=== PATIENT | female | born 1945 | race Caucasian/White ===

== ENCOUNTER 2024-02-09 10:52 | Emergency (ER) | payer MEDICARE, BC, SELFPAY ==
[2024-02-09 10:55] VITALS: BP 171/100
--- NOTE | 2024-02-09 11:31 | ED.GENMED ---
History of Present Illness
General
Chief Complaint: Abdominal Pain
Source: patient
Time Seen by Provider: 02/09/24 11:12
Travel History
Have you had any contact with someone who has COVID-19?: No
Do you have any symptoms of coronavirus? Fever > 100 degrees, chills, cough, shortness of breath, sore throat, loss of taste or smell, muscle aches, or headache?: No
History of Present Illness
History of Present Illness:
78-year-old female with past medical history of hypertension, hyperlipidemia, previous gastric ulcer presenting to the emergency department for evaluation after she developed gradual onset of generalized abdominal discomfort last night described to
be a dull ache, nonradiating, diffuse, unrelieved with Prilosec this morning prompting her to come to the emergency department. Patient denies any other associated symptoms including nausea, vomiting, bowel changes, urinary symptoms, chest pain,
shortness of breath. Patient states that she went out to dinner last night with some friends and braised beef with mashed potatoes which she states is not a typical dinner for her and believes this may have aggravated her stomach. Patient states
her other concern is if she possibly aggravated her previous stomach ulcer although she notes that she has not had any complications from this before.
Past History
Past History
ED Past Medical History: HTN, Hypercholesterolemia and Other (Gastric ulcer)
ED Past Surgical History: Cholecystectomy and Other (Hernia repair)
Social History
Tobacco: Non-smoker
Alcohol: None
Drug: None
Personal: Single
Living: with family
Review of Systems
Review of Systems
All Other Systems: ROS reviewed and negative except as documented in HPI and ROS
Phy Exam
Physical Exam
Physical Exam:
GENERAL: Alert , in no apparent distress
EYE: clear conjunctiva b/l
HEAD: NCAT
ENT: o/p clr, mmm.
CARDIAC: Regular rate and rhythm .
LUNGS: Clear breath sounds bilaterally, no acute respiratory distress, no wheezes/rales/rhonchi
ABDOMEN: Soft, diffusely tender but worse suprapubically and periumbilically, no r/g, no cvat, no tenderness at McBurney's point
NEUROLOGICAL: Alert and oriented
SKIN: Warm and dry, skin intact.
MUSCULOSKELETAL: No edema, well perfused.
PSYCH: Normal and appropriate interaction.
Scores
Heart Failure Risk
Heart Failure Risk Score: Not Applicable
Heart Score for Chest Pain Patients
STEMI patient?: Not applicable
Withdrawal Assessment of Alcohol
Withdrawal Assessment Completed?: Not applicable
Course
Orders/Labs/Results
Orders:
Orders
02/09/24 11:30
Complete Blood Count/With Diff Urgent
Comprehensive Metabolic Panel Urgent
Lipase Urgent
02/09/24 11:35
CT Abd/pelvis W Iv Cont Urgent
Comment:
Reason For Exam: generalized abd pain
02/09/24 12:14
0.9% Sodium Chloride 1000 ml [Nss] 1,000 ml IV BOLUS
02/09/24 13:27
Acetaminophen [Tylenol] 1,000 mg PO NOW STA
02/09/24 14:24
Basic Metabolic Panel Urgent
Abnormal Lab Results
02/09/24 02/09/24
11:30 14:24
Absolute Monos (auto) 0.7 H 10^3/uL
(0.1-0.6)
Monocytes % 11.3 H %
(1.7-9.3)
Sodium 125 L mmol/L 126 L mmol/L
(135-145) (135-145)
Chloride 95 L mmol/L
(98-107)
Creatinine 0.5 L mg/dL
(0.6-1.0)
02/09/24 11:30
02/09/24 14:24
Vital Signs
Initial and Last Documented VS:
Initial Vital Signs
Temp Pulse Resp BP Pulse Ox
98.2 F 77 17 171/100 99
02/09/24 10:55 02/09/24 10:55 02/09/24 10:55 02/09/24 10:55 02/09/24 10:55
Last Documented Vital Signs
Temp Pulse Resp BP Pulse Ox
98.2 F 78 18 153/64 98
02/09/24 10:55 02/09/24 12:47 02/09/24 12:47 02/09/24 12:47 02/09/24 12:47
MDM/Problems Addressed
Differential Diagnosis Includes:
GERD, gastritis, peptic ulcer disease, hiatal hernia, less concern for pancreatitis, appendicitis
MDM/Problems Addressed:
78-year-old female present emergency department for evaluation of generalized abdominal pain that started last night shortly after dinnertime. Pain while improved today is still present during her to come to the emergency department. She does have
reproducible pain periumbilically and suprapubically on exam here. Otherwise well-appearing. She is declining anything for pain at this time. Will obtain labs and CT imaging. Reassessment following
*Radiology
Radiology exam reviewed: radiology read reviewed
*Pulse Oximetry
Patient hypoxic: no
*Critical Care Note
Total Time (30-74mins, 75-104mins- exclusive of procedures): Not Applicable
Comment
Comment:
Patient's labs are reassuring outside of some hyponatremia with a sodium of 125. No clear etiology for this and patient does not have a previous sodium on record. Treating with 1 L of IV fluids. Will repeat a BMP following. Patient CT without
any acute surgical findings. She is now requesting some Tylenol for pain control. Anticipate discharge home pending repeat BMP.
Patient Management
Discussion with other providers: Security Checker
Escalation/DeEscalation of care consider admission/obs:
Repeat sodium is 126. Patient remains asymptomatic. She now tells me that she is on a half dose of a diuretic which could potentially be playing a role in her sodium level. Her son reviewed her labs from back in December when she had a normal sodium
level of 138. I notified our nephrology team who is okay with us discharging patient home as she is asymptomatic. I advised the patient she contact her primary care physician to have her labs repeated in a week or so. Aware of return precautions
but otherwise stable for discharge home.
ED Attending Note
-
Portions of this chart may have been created with voice recognition software.� Occasional wrong word or��sound alike� substitutions may have occurred due to the inherent limitations of voice recognition software.
Discharge Plan
Departure
Patient Disposition: Home (Routine Discharge)
Date of Disposition: 02/09/24
Time of Disposition: 15:04
Patient with high blood pressure during this ER visit?: No
Discharge Problem:
Abdominal pain, Hyponatremia
Instructions: Abdominal Pain
Referrals:
Arpit Bianchi, [Family Provider] -
Interventions
Interventions:
*Risk Screen - Suicide Last Done: 02/09/24 11:51
*General Assessment Last Done: 02/09/24 11:29
*Neglect/Abuse Screening Last Done: 02/09/24 11:51
ED- Fall Risk Assessment Last Done: 02/09/24 11:50
*ED COVID-19 Vaccine History Last Done: 02/09/24 11:29
QQ-Nvzbzf-Mpuihgxroi Assessment Last Done: 02/09/24 11:50
Discharge Date and Time
Print Language: JAMAICAN
[2024-02-09 11:44] LABS: % Basophils 0.8 % (0-2); % Eosinophils 1.1 % (0-6); % Immature Granulocytes 0.3 % (0-0.5); % Monocytes 11.3 % (1.7-9.3); % Neutrophils 64.5 % (42.2-75.2); Absolute Basophils 0.1 10^3/uL (0-0.2); Absolute Eosinophils 0.1 10^3/uL (0-0.7); Absolute Lymphocytes 1.3 10^3/uL (1.2-3.4); Absolute Monocytes 0.7 10^3/uL (0.1-0.6); Absolute Neutrophils 3.9 10^3/uL (1.4-6.5); Hematocrit 39.5 % (37.0-47.0); Hemoglobin 13.7 g/dL (12.0-16.0); Mean Corp Hgb Conc. 34.7 g/dL (33.0-37.0); Mean Corpuscular Hgb 28.5 pg (27.0-31.0); Mean Corpuscular Volume 82.3 fL (81.0-99.0); Mean Platelet Volume 8.3 fL (7.4-10.4); Nucleated Red Blood Cells % 0 %; Platelet Count 289 10^3/uL (130-400); Red Cell Dist. Width 13.2 % (11.5-14.5); White Blood Cell Count 6.1 10^3/uL (4.8-10.8)
[2024-02-09 12:06] LABS: ALT (SGPT) 19 U/L (0-35); AST (SGOT) 28 U/L (14-36); Albumin 4.7 g/dl (3.5-5.0); Alkaline Phosphatase 68 U/L (38-126); Blood Urea Nitrogen 16 mg/dl (7-17); Calcium 9.9 mg/dl (8.4-10.2); Carbon Dioxide 25 mmol/L (22-30); Chloride 95 mmol/L (98-107); Glucose 94 mg/dl (70-99); Lipase 113 U/L (23-300); Potassium 4.6 mmol/L (3.5-5.1); Sodium 125 mmol/L (135-145); Total Bilirubin 0.6 mg/dl (0.2-1.3); Total Protein 7.3 g/dl (6.3-8.2); eGFR > 60.00
[2024-02-09] MEDS: NSS 1000 IV (12:23)
[2024-02-09 12:47] VITALS: BP 153/64
[2024-02-09] MEDS: TYLENOL 1000 MG PO (13:29)
[2024-02-09 14:47] LABS: Blood Urea Nitrogen 13 mg/dl (7-17); Calcium 8.8 mg/dl (8.4-10.2); Carbon Dioxide 24 mmol/L (22-30); Chloride 99 mmol/L (98-107); Glucose 89 mg/dl (70-99); Sodium 126 mmol/L (135-145); eGFR > 60.00
[2024-02-09 15:17] VITALS: BP 137/89
== END 2024-02-09 15:22 | disposition home or self-care (01) ==
LOC: EMR 10:52
PROVIDERS: Physician Assistant Medical; EMERGENCY PHYSICIAN Emergency Medicine; FAMILY PHYSICIAN Family Medicine
DX: R10.84 Generalized abdominal pain (principal); E87.1 Hypo-osmolality and hyponatremia; I10 Essential (primary) hypertension; E78.00 Pure hypercholesterolemia, unspecified; Z87.11 Personal history of peptic ulcer disease; Z90.49 Acquired absence of other specified parts of digestive tract
CPT/HCPCS: 99285; 74177; 80048; 80053; 83690; 85025; Q9967

== ENCOUNTER → 2024-04-21 13:41 | Outpatient (REF) | payer MEDICARE, BC, SELFPAY | LOC: HWRAD 13:41 | PROVIDERS: ATTENDING PHYSICIAN Internal Medicine Interventional Cardiology; FAMILY PHYSICIAN Family Medicine | DX: E78.49 Other hyperlipidemia (principal) | CPT/HCPCS: 75571 ==

== ENCOUNTER → 2024-05-08 10:42 | Outpatient (REF) | payer MEDICARE, BC, SELFPAY | LOC: HWRCS 10:42 | PROVIDERS: ATTENDING PHYSICIAN Internal Medicine Interventional Cardiology; FAMILY PHYSICIAN Family Medicine | DX: I10 Essential (primary) hypertension (principal) | CPT/HCPCS: 93306 ==

== ENCOUNTER 2024-10-16 09:29 | Inpatient (IN) | payer MEDICARE, BC, SELFPAY ==
[2024-10-13 16:58] VITALS: BP 147/84
[2024-10-13 17:12] LABS: % Basophils 0.3 % (0-2); % Eosinophils 0.6 % (0-6); % Immature Granulocytes 0.5 % (0-0.5); % Lymphocytes 8.3 % (20.5-51.1); % Monocytes 8.1 % (1.7-9.3); % Neutrophils 82.2 % (42.2-75.2); Absolute Eosinophils 0.1 10^3/uL (0-0.7); Absolute Immature Granulocytes 0.1 10^3/uL (0-0.05); Absolute Neutrophils 9.9 10^3/uL (1.4-6.5); Hematocrit 42.9 % (37.0-47.0); Hemoglobin 14.4 g/dL (12.0-16.0); Mean Corp Hgb Conc. 33.6 g/dL (33.0-37.0); Mean Corpuscular Volume 86.5 fL (81.0-99.0); Mean Platelet Volume 8.5 fL (7.4-10.4); Nucleated Red Blood Cells % 0 %; Platelet Count 232 10^3/uL (130-400); Red Blood Cell Count 4.96 10^6/uL (4.20-5.40)
[2024-10-13 17:26] LABS: ALT (SGPT) 22 U/L (0-35); AST (SGOT) 36 U/L (14-36); Albumin 5.2 g/dl (3.5-5.0); Alkaline Phosphatase 55 U/L (38-126); Blood Urea Nitrogen 18 mg/dl (7-17); Carbon Dioxide 26 mmol/L (22-30); Chloride 89 mmol/L (98-107); Glucose 155 mg/dl (70-99); Lipase 57 U/L (23-300); Potassium 3.6 mmol/L (3.5-5.1); Sodium 127 mmol/L (135-145); Total Bilirubin 0.8 mg/dl (0.2-1.3); Total Protein 7.8 g/dl (6.3-8.2); eGFR > 60.00
[2024-10-13 17:39] LABS: Troponin I < 0.012 ng/ml
[2024-10-13 18:08] LABS: COVID-19 Antigen Negative (Negative)
[2024-10-13 20:46] VITALS: BP 167/97; BMI 27.3
--- NOTE | 2024-10-13 20:46 | ED.GENMED ---
History of Present Illness
General
Chief Complaint: Fainting/Passed Out
Source: patient and family
Time Seen by Provider: 10/13/24 20:31
History of Present Illness
History of Present Illness:
3 to 4 days of cough congestion fatigue weakness. Near syncopal episode day of ER visit. Some sweating. No chest pain. Symptoms are moderate in nature.
Past History
Past History
ED Past Medical History: HTN, Hypercholesterolemia and Other (Gastric ulcer)
ED Past Surgical History: Cholecystectomy and Other (Hernia repair)
Social History
Tobacco: Non-smoker
Alcohol: None
Drug: None
Personal: Single
Living: with family
Review of Systems
Review of Systems
All Other Systems: Not applicable
Constitutional: Reports fever and fatigue
Respiratory: Reports cough and trouble breathing
Cardiac: Denies chest pain
ABD/GI: Reports no symptoms
Phy Exam
Physical Exam
Physical Exam:
GENERAL: Alert and oriented. Generally weak appearing
EYE: Orbits normal.
NECK: Supple, no significant adenopathy.
ENT: Pharynx without erythema
CARDIAC: Regular rate and rhythm without any obvious murmurs.
LUNGS: Occasional rhonchi's with coarse cough
ABDOMEN: Soft, without focal tenderness or distention
NEUROLOGICAL: Alert and oriented , grossly non-focal
SKIN: Warm and dry, no rash or lesion, no discoloration, skin intact.
MUSCULOSKELETAL: No edema,no deformity.Good color
PSYCH: Normal and appropriate interaction.
Course
Orders/Labs/Results
Orders:
Orders
10/13/24 16:45
Electrocardiogram (*1) Urgent
Reason for Study: Abdominal Pain
EKG- Treatment ONCE
10/13/24 16:50
COVID-19 Antigen Urgent
Source: Nasal Swab
Complete Blood Count/With Diff Urgent
Comprehensive Metabolic Panel Urgent
Lipase Urgent
Troponin I Urgent
Influenza A+B Rapid Molecular Urgent
BERNIE Source: Nasal Swab
Specimen Description:
10/13/24 20:44
IV Insert/Care/Rem.- Treatment PRN
0.9% Sodium Chloride 1000 ml [Nss] 1,000 ml IV BOLUS
10/13/24 20:45
CR Chest - 2 Views Urgent
Comment:
Reason For Exam: Cough/near syncope
10/13/24 22:56
Admit/Transfer Patient As Directed
Co-Sign Provider:
Level of Care: Observation services
Assign to:: Telemetry
Physician / Group: José Miguel
Diagnosis: Viral Syndrome, Chronic Hyponatremia
Reason for Telemetry: Arrhythmia
Date to Stop Telemetry: 10/16/24
Time to Stop Telemetry: 11:00
PRN Pain Medication Management As Directed
May give lesser potent ordered pain med per pt: Yes
preference::
Protocol:: Medication orders for pain may be administered in a
manner that supports deferring to patient preference
when the pt is:
- Requesting an ordered lesser potent pain medication.
Least to most potent pain medications are defined
as: acetaminophen < NSAID < tramadol < opioids
(morphine, oxycodone, hydromorphone).
- Requesting a lesser dose of the same medication IF
ORDERED.
- Requesting a less intrusive route of administration
if both routes are prescribed by the provider (PO <
IV).
10/13/24 22:57
Code Status As Directed
Resuscitation Status: Full Code
10/14/24 01:07
Acetaminophen [Tylenol] 650 mg PO Q4HPRN PRN
Albuterol Nebs [Ventolin Nebules] 2.5 mg INH R Q4HPRN PRN
Ondansetron Injectable [Zofran] 4 mg IV Q6HPRN PRN
10/14/24 01:07
Activity As Directed
Activity Level: Ambulate
With Assistance
EKG with chest pain [ECG as needed] As Directed
ECG as needed for:: Chest Pain
I/O [Intake/ Output] As Directed
Frequency: Per unit guidelines
Orthostatic Vital Signs As Directed
Orthostatic VS Frequency: BID
Pneumatic Compression Sleeves As Directed
Type: Knee high
Vital Signs As Directed
Frequency: Per unit guidelines
Weight As Directed
Frequency: Daily
Chest PT [Rx Chest Pt] [RESP] Routine
Special Instructions: BID
Incentive Spirometry [Rx Incentive Spirometry] [RESP] Routine
Frequency: q1h while awake
Oxygen Therapy [O2 Therapy] [RESP] Routine
Titrate/Wean O2 to maintain O2 sat greater than (%): 94
Ot Eval And Treat Routine
PT Consult [Pt Eval And Treat] Routine
Activity Level: Ambulate
With Assistance
DX Deep Vein Thrombosis Video Routine
10/14/24 05:19
Basic Metabolic Panel IN AM
Complete Blood Count/No Diff IN AM
Cortisol, Random IN AM
Glycohemoglobin (HgbA1c) Routine
TSH Reflex To Free T4 Routine
10/14/24 Breakfast
Regular
At Your Request: Full Participation
Does patient need a safe tray?: No
Fluid Restriction: 1200 mL/day (40 oz)
10/14/24 08:00
Guaifenesin [Mucinex] 600 mg PO Q12
Heparin 5,000 units SC Q12
Losartan [Cozaar] 25 mg PO DAILY
Pantoprazole [Protonix] 40 mg PO DAILY
10/14/24 12:02
Urine Osmolality Random [Osmolality, Random Urine] Routine
Date Specimen was Collected: 10/14/24
Time Specimen was Collected: 11:55
Urine Sodium Routine
Date Specimen was Collected: 10/14/24
Time Specimen was Collected: 11:55
10/14/24 22:00
Atorvastatin [Lipitor] 20 mg PO HS
verapamil 300 mg PO HS
10/16/24 11:00
DC Protocol for Telemetry ONCE
Abnormal Lab Results
10/13/24
16:50
WBC 12.0 H 10^3/uL
(4.8-10.8)
Abs Immat Gran (auto) 0.1 H 10^3/uL
(0-0.05)
Absolute Neuts (auto) 9.9 H 10^3/uL
(1.4-6.5)
Absolute Lymphs (auto) 1.0 L 10^3/uL
(1.2-3.4)
Absolute Monos (auto) 1.0 H 10^3/uL
(0.1-0.6)
Neutrophils % 82.2 H %
(42.2-75.2)
Lymphocytes % 8.3 L %
(20.5-51.1)
Sodium 127 L mmol/L
(135-145)
Chloride 89 L mmol/L
(98-107)
BUN 18 H mg/dl
(7-17)
Glucose 155 H mg/dl
(70-99)
Albumin 5.2 H g/dl
(3.5-5.0)
10/13/24 16:50
10/13/24 16:50
Vital Signs
Initial and Last Documented VS:
Initial Vital Signs
Temp Pulse Resp Pulse Ox
97.8 F 68 18 98
10/13/24 16:43 10/13/24 16:43 10/13/24 16:43 10/13/24 16:43
Last Documented Vital Signs
Temp Pulse Resp BP Pulse Ox
98.4 F 95 20 168/96 97
10/16/24 15:21 10/16/24 15:21 10/16/24 15:21 10/16/24 15:21 10/16/24 15:21
MDM/Problems Addressed
Differential Diagnosis Includes:
Patient with general fatigue weakness hyponatremia near syncope. Warrants inpatient evaluation and further care
*Radiology
Radiology exam reviewed: radiology read reviewed (No acute findings)
*Pulse Oximetry
Patient hypoxic: no
*EKG
Interpreted by ED Provider?: Yes
Interpretation: normal
Comparison EKG: no comparison EKG present
Heart Rate: 67
Rhythm: sinus
Salol: normal axis
Interval: normal interval
QRS Pattern: normal QRS
Ischemia: no ischemia
*Critical Care Note
Total Time (30-74mins, 75-104mins- exclusive of procedures): Not Applicable
Data Reviewed
Review of Other/Old Records Reveals: Labs and Testing
Update Note
Update Note:
Persistent nausea. Hyponatremia may be acute/recurrent or chronic. We have no comparison. Likely viral syndrome with near syncope secondary to nausea and abdominal symptoms. However patient remains nauseous. Baseline hyponatremia is unknown.
Warrants inpatient management
ED Attending Note
-
Portions of this chart may have been created with voice recognition software.� Occasional wrong word or��sound alike� substitutions may have occurred due to the inherent limitations of voice recognition software.
Discharge Plan
Departure
Patient Disposition: Admit
Date of Disposition: 10/13/24
Time of Disposition: 22:32
Presentation/result/management discussed w/ accepting MD/DO: Hospitalist
Discharge Problem:
Near syncope, Hyponatremia, Persistent nausea, Likely viral syndrome
Interventions
Interventions:
*Risk Screen - Suicide Last Done: 10/14/24 01:30
*General Assessment Last Done: 10/13/24 20:47
*Neglect/Abuse Screening Last Done: 10/13/24 20:47
ED- Fall Risk Assessment Last Done: 10/13/24 20:47
*ED COVID-19 Vaccine History Last Done: 10/14/24 01:30
*Nursing Disposition Last Done: 10/14/24 00:47
ED- Cardiac Assessment Last Done: 10/13/24 20:47
ED- Neurological Assessment Last Done: 10/13/24 20:47
Discharge Date and Time
Discharge Date/Time: 10/14/24 00:48
[2024-10-13] MEDS: NSS 1000 IV (21:12)
--- NOTE | 2024-10-13 22:59 | HPS.HSE ---
Family Physician
-
Family Physician: Arpit Bianchi
Chief Complaint
-
Nausea, cough, dizziness
History of Present Illness
Patient is an 79y F with PMH significant for hypertension who presents to ED complaining of cough x several days, nausea and lightheadedness. Patient states that she started with hacking, non-productive cough on . She then developed
epigastric abdominal discomfort and nausea. Her cough has been non-productive. She complains of dyspnea only with paroxysms of coughing. No chest pain. Today she felt extremely nauseated. She denies emesis, but states that she 'spit up bile' a
few times - including here in the ED.
Patient today noted sensation of lightheadedness. She did not fall, lose consciousness, etc.
Patient notes that she was at a family reunion 10/01 with many, many family members.
Medical History
Past Medical History
Past Medical History: Reports Other
Additional Past Medical History:
Hypertension
Osteoarthritis
GERD
Past Surgical History: Reports Other
Additional Past Surgical History:
Hernia Repair
Foot Surgery
Social History
Tobacco: Former Smoker (Quit smoking 60 years ago.)
Alcohol: Occasional
Drug: None
Family History
Family History: Not pertinent
Allergies / Home Medications
Allergies reflects when Allergies were last updated in [facility].
Home Medications with original date entered in [facility]
Allergy/Medication List:
Allergies
Allergy/AdvReac Type Severity Reaction Status Date / Time
No Known Allergies Allergy Unverified 02/09/24 10:56
Home Medications
acetaminophen 650 mg tablet,extended release (Tylenol Arthritis Pain) 1,300 mg PO DAILY 10/13/24
benzonatate 200 mg capsule 200 mg PO TID 10/13/24
cholecalciferol (vitamin D3) 50 mcg (2,000 unit) tablet (Vitamin D3) 50 mcg PO QPM 10/13/24
cyclobenzaprine 10 mg tablet 10 mg PO HS PRN Muscle pain 10/13/24
hydrochlorothiazide 25 mg tablet 25 mg PO DAILY 10/13/24
promethazine-DM 6.25 mg-15 mg/5 mL oral syrup 10 ml PO TID 10/13/24
psyllium husk 3.4 gram/5.4 gram oral powder (Metamucil) 2 tbsp PO DAILY 10/13/24
rosuvastatin 5 mg tablet 5 mg PO HS 10/13/24
solifenacin 5 mg tablet (Vesicare) 5 mg PO DAILY 10/13/24
verapamil 300 mg capsule 24hr pellet CT,ext.release 300 mg PO HS 10/13/24
Review of Systems
-
History Source: Patient
A 12 point ROS was completed and negative except as noted: Yes
Constitutional: Reports Fatigue; Denies Fever or Chills
EENT: Denies Sore Throat
Respiratory: Reports Cough and Trouble Breathing; Denies Hemoptysis
Cardiac: Denies Chest Pain, Diaphoresis, Palpitations or Syncope
Abdomen/GI: Reports Nausea and Vomiting; Denies Abdominal Pain or Diarrhea
: Denies Dysuria or Frequency
Musculoskeletal: Denies Joint Pain or Edema
Neurological: Reports Dizzy; Denies Headache
Psych: Denies Depression or Anxiety
Physical Exam
Vital Signs
Vital Signs
Temp Pulse Resp BP Pulse Ox
97.8 F 68 18 167/97 94
10/13/24 16:43 10/13/24 16:43 10/13/24 16:43 10/13/24 20:46 10/13/24 21:45
Physical Exam
General: Other (79y F in no acute distress.)
HEENT: Moist mucous membranes and PERRLA
Respiratory: Other (Coarse breath sounds in the upper lobes - R > L. No wheezing. Cough with deep inspiration.)
Cardiac: S1/S2 and Regular Rhythm; No Murmur
GI: Soft, Non Distended, Normal Bowel Sounds and Other (Mild epigastric tenderness. No rebound / guarding.)
Musculoskeletal: No Clubbing, No Cyanosis and No Edema
Neuro: AO x 3
Laboratory Results
-
10/13/24 16:50
10/13/24 16:50
Laboratory Results
Total Bilirubin 0.8 mg/dl (0.2-1.3) 10/13/24 16:50
AST 36 U/L (14-36) 10/13/24 16:50
ALT 22 U/L (0-35) 10/13/24 16:50
Alkaline Phosphatase 55 U/L (38-126) 10/13/24 16:50
Troponin I < 0.012 ng/ml 10/13/24 16:50
Lipase 57 U/L (23-300) 10/13/24 16:50
Impression/Plan
-
A/P: Patient is an 79y F with PMH significant for hypertension who presents to ED complaining of cough x several days with nausea and lightheadedness.
Viral Syndrome
- Observe overnight for further evaluation and treatment.
- COVID and influenza negative here in the ED.
- No focal infiltrates appreciated on CXR.
- Supportive care with nebs, mucolytics, etc.
- Follow for clinical improvement.
Hyponatremia - Chronic
- This is clearly secondary to HCTZ therapy.
- HCTZ was started in January. Prior records note normal Na level in December and hyponatremia at both ED visits since that time.
- Stop HCTZ and would not resume this medication.
- Fluid restriction for now and follow for improvement in Na levels.
Benign Hypertension
- Stable. Continue verapamil.
- Stop HCTZ as noted above.
- Begin losartan for added BP control for now and adjust regimen as needed.
OAB
- Stable. Continue Vesicare.
DVT Prophylaxis: Subcut Heparin
Code Status: Full
[2024-10-14] VITALS (10 sets, daily range): BP systolic 115–162; BP diastolic 64–101; PULSE 93–116; O2SAT 97; BMI 26.8; BMI 27.0
--- NOTE | 2024-10-14 03:01 | PTCARENOTE ---
Rec'd pt from the ED, oriented to room and unit. Placed on tele, running nsr. call levy placed within reach, pt instructed to ring for assistance. will cont to monitor.
[2024-10-14] MEDS: ZOFRAN 4 MG IV ×3 (04:22→18:32)
[2024-10-14 06:03] LABS: Hematocrit 41.1 % (37.0-47.0); Hemoglobin 14.2 g/dL (12.0-16.0); Mean Corp Hgb Conc. 34.5 g/dL (33.0-37.0); Mean Corpuscular Hgb 29.5 pg (27.0-31.0); Mean Corpuscular Volume 85.3 fL (81.0-99.0); Mean Platelet Volume 8.8 fL (7.4-10.4); Platelet Count 247 10^3/uL (130-400); Red Blood Cell Count 4.82 10^6/uL (4.20-5.40); Red Cell Dist. Width 12.9 % (11.5-14.5); White Blood Cell Count 8.9 10^3/uL (4.8-10.8)
[2024-10-14 06:26] LABS: Blood Urea Nitrogen 18 mg/dl (7-17); Calcium 9.1 mg/dl (8.4-10.2); Carbon Dioxide 25 mmol/L (22-30); Chloride 92 mmol/L (98-107); Estimated Creatinine Clearance 50 ml/min; Glucose 117 mg/dl (70-99); Potassium 4.1 mmol/L (3.5-5.1); Sodium 130 mmol/L (135-145); eGFR > 60.00
[2024-10-14 06:56] LABS: TSH Reflex To Free T4 0.54 uIU/ml (0.47-4.68)
[2024-10-14 06:57] LABS: Cortisol, Random 34.1 ug/dl
--- NOTE | 2024-10-14 07:20 | W.PN.HOSP.TC ---
Today's Communication/Plan
-
Continue to monitor, supportive care
Assessment / Plan
Assessment / Plan
Physical Exam
General: Not in acute distress
HEENT: Moist mucous membranes
Respiratory: CTAB
Cardiac: S1/S2 and Regular Rhythm
GI: Soft, Non Distended, Normal Bowel Sounds and Other (Mild epigastric tenderness. No rebound / guarding.)
Musculoskeletal: No Cyanosis and No Edema
Neuro: AAO x 3
Assessment/Plan
Patient is an 79y F with PMH significant for hypertension who presents to ED complaining of cough x several days with nausea and lightheadedness.
Viral Syndrome
- COVID and influenza negative in the ED.
- No focal infiltrates appreciated on CXR.
- Supportive care with nebs, mucolytics, etc.
- Follow for clinical improvement.
Nausea/Vomiting
- Continue to monitor
- Check repeat EKG
Hyponatremia - Chronic
- This is clearly secondary to HCTZ therapy.
- HCTZ was started in January. Prior records note normal Na level in December and hyponatremia at both ED visits since that time.
- Stop HCTZ and would not resume this medication.
- Fluid restriction for now and follow for improvement in Na levels.
Benign Hypertension
- Stable. Continue verapamil.
- Stop HCTZ as noted above.
- Begin losartan for added BP control for now and adjust regimen as needed.
OAB
- Stable. Continue Vesicare.
DVT Prophylaxis: Subcut Heparin
Code Status: Full
Anticipated Discharge: 24 - 48 hours
Subjective/Interval History
-
Date of Service: October 14, 2024
Patient was seen and examined. She reported not feeling great, still coughing, vomited this morning.
Objective Data
-
Labs:
Laboratory Results
10/14/24
05:19
WBC 8.9
Hgb 14.2
Hct 41.1
Plt Count 247
Sodium 130 L
Potassium 4.1
Chloride 92 L
Carbon Dioxide 25
BUN 18 H
Creatinine 0.7
Glucose 117 H
Calcium 9.1
Vital Signs:
Vital Signs
Temp Pulse Resp BP Pulse Ox
99.2 F 95 16 158/89 94
10/14/24 03:00 10/14/24 03:00 10/14/24 03:00 10/14/24 03:00 10/14/24 03:00
I&O
10/13/24 10/14/24 10/15/24
06:59 06:59 06:59
Intake Total 1000 / 1000
Balance 1000 / 1000
[2024-10-14 08:54] LABS: Glycohemoglobin (HgbA1c) 5.4 % (4.0-5.6)
--- NOTE | 2024-10-14 09:37 | CM ---
CM met with pt at bedside.
Pt reports being ind. prior to admission with amb and adl's.
Resides alone at [facility].
CHIN form reviewed and placed on chart.
Pt began to report N/V. Nursing notified.
[2024-10-14] MEDS: MUCINEX 600 MG PO ×2 (10:15→20:06)
[2024-10-14] MEDS: HEPARIN 5000 UNITS SC ×2 (10:16→20:06)
[2024-10-14] MEDS: COZAAR 25 MG PO (10:16)
[2024-10-14] MEDS: PROTONIX 40 MG PO (10:16)
[2024-10-14 12:20] LABS: Urine Albumin Trace (Neg - Trace); Urine Bilirubin Negative (Negative); Urine Character Clear (Clear); Urine Color Yellow; Urine Glucose Negative (Negative); Urine Ketone 1+ (Negative); Urine Leukocyte Trace (Negative); Urine Nitrite Positive (Negative); Urine Occult Blood 1+ (Negative); Urine Specific Gravity 1.025 (<1.030); Urine Urobilinogen Negative (Neg - 1+)
[2024-10-14 12:32] LABS: Osmolality Urine 645 mOsm/kg (300-900); Urine Bacteria Many (Negative); Urine Red Blood Cell 0-2 /HPF (0-2); Urine Squamous Cell 0-2 /LPF (Few); Urine White Cell 30-40 /HPF (0-5)
[2024-10-14 12:37] LABS: Urine Sodium 79 mmol/L (30-90)
[2024-10-14] MEDS: LIPITOR PO (21:05)
[2024-10-15] VITALS (9 sets, daily range): BP systolic 110–158; BP diastolic 65–92; PULSE 89–107; BMI 26.5
--- NOTE | 2024-10-15 06:22 | PTCARENOTE ---
pt is nauseous and vomited. had Zofran earlier. later resolved and no other issues throughout the night.
[2024-10-15] MEDS: COZAAR 25 MG PO (08:46)
[2024-10-15] MEDS: MUCINEX 600 MG PO (08:46)
[2024-10-15] MEDS: HEPARIN 5000 UNITS SC ×2 (08:47→19:56)
[2024-10-15] MEDS: PROTONIX 40 MG PO ×2 (08:47→20:23)
[2024-10-15 09:42] LABS: Hematocrit 40.3 % (37.0-47.0); Hemoglobin 13.8 g/dL (12.0-16.0); Mean Corp Hgb Conc. 34.2 g/dL (33.0-37.0); Mean Corpuscular Hgb 29.2 pg (27.0-31.0); Mean Corpuscular Volume 85.4 fL (81.0-99.0); Mean Platelet Volume 9.1 fL (7.4-10.4); Platelet Count 229 10^3/uL (130-400); Red Blood Cell Count 4.72 10^6/uL (4.20-5.40); Red Cell Dist. Width 13.1 % (11.5-14.5); White Blood Cell Count 9.3 10^3/uL (4.8-10.8)
[2024-10-15 10:17] LABS: Blood Urea Nitrogen 27 mg/dl (7-17); Carbon Dioxide 23 mmol/L (22-30); Chloride 93 mmol/L (98-107); Estimated Creatinine Clearance 43 ml/min; Glucose 97 mg/dl (70-99); Potassium 3.7 mmol/L (3.5-5.1); Sodium 130 mmol/L (135-145); eGFR > 60.00
--- NOTE | 2024-10-15 13:19 | CM ---
CM reviewed chart, patient seen bedside. Patient reports no needs to CM at this time. Patient resides at [facility]. CM will continue to follow for all discharge planning needs.
Plan; return to Independent Living when stable.
[2024-10-15] MEDS: ZOFRAN 4 MG IV (18:30)
--- NOTE | 2024-10-15 19:00 | W.PN.HOSP.TC ---
Today's Communication/Plan
-
Continue with nausea/abdominal pain, EKG noted not suggestive of ACS.
RUQ Ultrasound, CT Abdomen Pelvis
Increase PPI to twice daily
Assessment / Plan
Assessment / Plan
Physical Exam
General: Not in acute distress
HEENT: Moist mucous membranes
Respiratory: CTAB
Cardiac: S1/S2 and Regular Rhythm
GI: Soft, Non Distended, Normal Bowel Sounds and Other (Mild epigastric tenderness. No rebound / guarding.)
Musculoskeletal: No Cyanosis and No Edema
Neuro: AAO x 3
Assessment/Plan
Patient is an 79y F with PMH significant for hypertension who presents to ED complaining of cough x several days with nausea and lightheadedness.
Concern Viral Syndrome
- COVID and influenza negative in the ED.
- No focal infiltrates appreciated on CXR.
- Supportive care with nebs, mucolytics, etc.
- Follow for clinical improvement.
Nausea/Vomiting/Abdominal Pain
- Continue to persist; check RUQ ultrasound and CT Abdomen/Pelvis
- Increase PPI BID
- Check repeat EKG
Hyponatremia - Chronic
- This is at least partly secondary to HCTZ therapy.
- HCTZ was started in January 2024. Prior records note normal sodium level in December 2023 and hyponatremia at both ED visits since that time.
- Stop HCTZ and would not resume this medication.
- Fluid restriction for now and follow for improvement in Na levels.
Benign Hypertension
- Stable.
- Stop HCTZ as noted above.
- Begin losartan for added BP control for now and adjust regimen as needed.
- Patient's blood pressure is controlled while Verapamil is on hold
OAB
- Stable. Continue Vesicare.
DVT Prophylaxis: Subcutaneous Heparin 5000 units Q12H was given from 10/14/24 to 10/15/24. Start Lovenox on 10/16/24.
Code Status: Full Code
Anticipated Discharge: 24 - 48 hours
Subjective/Interval History
-
Date of Service: October 15, 2024
Patient was seen and examined. She still reports some epigastric abdominal discomfort, still having nausea vomiting at times. She denied any chest pain or shortness of breath.
Objective Data
-
Labs:
Laboratory Results
10/15/24
07:12
WBC 9.3
Hgb 13.8
Hct 40.3
Plt Count 229
Sodium 130 L
Potassium 3.7
Chloride 93 L
Carbon Dioxide 23
BUN 27 H
Creatinine 0.8
Glucose 97
Calcium 9.0
Vital Signs:
Vital Signs
Temp Pulse Resp BP Pulse Ox
98.6 F 70 20 130/80 98
10/15/24 15:18 10/15/24 15:18 10/15/24 15:18 10/15/24 15:18 10/15/24 15:18
I&O
10/14/24 10/15/24 10/16/24
06:59 06:59 06:59
Intake Total 1000 / 1000 400 / 400 1200 / 1200
Output Total 350 / 350
Balance 1000 / 1000 50 / 50 1200 / 1200
[2024-10-15] MEDS: LIPITOR 20 MG PO (19:56)
[2024-10-15] MEDS: MUCINEX PO ×2 (19:56→20:02)
[2024-10-15 21:04] LABS: Troponin I < 0.012 ng/ml
[2024-10-16] VITALS (7 sets, daily range): BP systolic 135–168; BP diastolic 72–98; PULSE 91–96; BMI 26.3
[2024-10-16 03:06] LABS: Troponin I < 0.012 ng/ml
[2024-10-16 08:47] LABS: % Basophils 0.4 % (0-2); % Eosinophils 0.2 % (0-6); % Immature Granulocytes 0.2 % (0-0.5); % Lymphocytes 11.8 % (20.5-51.1); % Monocytes 15.9 % (1.7-9.3); % Neutrophils 71.5 % (42.2-75.2); Absolute Monocytes 1.4 10^3/uL (0.1-0.6); Absolute Neutrophils 6.1 10^3/uL (1.4-6.5); Hematocrit 40.2 % (37.0-47.0); Hemoglobin 13.7 g/dL (12.0-16.0); Mean Corp Hgb Conc. 34.1 g/dL (33.0-37.0); Mean Corpuscular Hgb 29.3 pg (27.0-31.0); Mean Corpuscular Volume 85.9 fL (81.0-99.0); Mean Platelet Volume 8.6 fL (7.4-10.4); Nucleated Red Blood Cells % 0 %; Platelet Count 210 10^3/uL (130-400); Red Blood Cell Count 4.68 10^6/uL (4.20-5.40); Red Cell Dist. Width 12.9 % (11.5-14.5); White Blood Cell Count 8.5 10^3/uL (4.8-10.8)
[2024-10-16 09:13] LABS: Troponin I < 0.012 ng/ml
[2024-10-16] MEDS: COZAAR 25 MG PO (09:39)
[2024-10-16] MEDS: PROTONIX 40 MG PO ×2 (09:39→20:13)
[2024-10-16] MEDS: MUCINEX 600 MG PO (09:39)
[2024-10-16] MEDS: OMNIPAQUE 50 ML PO (09:40)
[2024-10-16 09:58] LABS: ALT (SGPT) 19 U/L (0-35); AST (SGOT) 36 U/L (14-36); Alkaline Phosphatase 59 U/L (38-126); Blood Urea Nitrogen 26 mg/dl (7-17); Calcium 9.2 mg/dl (8.4-10.2); Carbon Dioxide 27 mmol/L (22-30); Chloride 94 mmol/L (98-107); Estimated Creatinine Clearance 43 ml/min; Glucose 85 mg/dl (70-99); Magnesium 2.2 mg/dl (1.6-2.3); Potassium 3.7 mmol/L (3.5-5.1); Sodium 132 mmol/L (135-145); Total Bilirubin 0.5 mg/dl (0.2-1.3); Total Protein 6.3 g/dl (6.3-8.2); eGFR > 60.00
--- NOTE | 2024-10-16 12:53 | CM ---
CM received TT, patient switched to inpatient status. Patient seen bedside with friends, reports no needs to CM at this time. IMM verbally reviewed, agreeable to form, provided with copy, placed in chart. CM will continue to follow for all discharge
planning needs.
Plan; home with no needs.
--- NOTE | 2024-10-16 12:55 | W.PN.HOSP.TC ---
Today's Communication/Plan
-
Small Bowel Obstruction and hernia
Surgery on Saturday
Strict NPO, IV fluids --> diet may be able to be advanced to clear liquids over the weekend
Assessment / Plan
Assessment / Plan
Physical Exam
General: Not in acute distress
HEENT: Moist mucous membranes
Respiratory: CTAB
Cardiac: S1/S2 and Regular Rhythm
GI: Soft, Non Distended, Normal Bowel Sounds and Other (Mild epigastric tenderness. No rebound / guarding.)
Musculoskeletal: No Cyanosis and No Edema
Neuro: AAO x 3
Assessment/Plan
Patient is an 79y F with PMH significant for hypertension who presents to ED complaining of cough x several days with nausea and lightheadedness.
Nausea/Vomiting/Abdominal Pain
Small Bowel Obstruction with Right anterolateral pelvic wall hernia
- Surgery consulted, patient opted for surgery which is expected to take place on 10/19/24
- Strict NPO
- Continue IV fluids
Hyponatremia - Chronic
- This is at least partly secondary to HCTZ therapy.
- HCTZ was started in January 2024. Prior records note normal sodium level in December 2023 and hyponatremia at both ED visits since that time.
- Stop HCTZ and would not resume this medication.
- Fluid restriction for now and follow for improvement in Na levels.
Benign Hypertension
- Stable.
- Stop HCTZ as noted above.
- Losartan on hold due to strict NPO
- Patient's blood pressure is controlled while Verapamil is on hold
- If BP high, can use IV medications
OAB
- Stable. Continue Vesicare.
DVT Prophylaxis: Lovenox
Code Status: Full Code
Anticipated Discharge: > 48 hours
Subjective/Interval History
-
Date of Service: October 16, 2024
Patient was seen and examined. She reports continued vomiting.
Objective Data
-
Labs:
Laboratory Results
10/16/24
08:23
WBC 8.5
Hgb 13.7
Hct 40.2
Plt Count 210
Sodium 132 L
Potassium 3.7
Chloride 94 L
Carbon Dioxide 27
BUN 26 H
Creatinine 0.8
Glucose 85
Calcium 9.2
Total Bilirubin 0.5
AST 36
ALT 19
Alkaline Phosphatase 59
Vital Signs:
Vital Signs
Temp Pulse Resp BP Pulse Ox
98.9 F 99 19 135/98 99
10/16/24 11:07 10/16/24 11:07 10/16/24 11:07 10/16/24 11:07 10/16/24 11:07
I&O
10/15/24 10/16/24 10/17/24
06:59 06:59 06:59
Intake Total 400 / 400 1440 / 1440
Output Total 350 / 350
Balance 50 / 50 1440 / 1440
--- NOTE | 2024-10-16 13:30 | CON.GS ---
Addendum entered and electronically signed by Nishant Foster MD 10/16/24 15:00:
I saw and examined the patient independently.
The Doctor Of [facility]'s note was reviewed and I agree with the note, assessment and plan except where noted below.
Comment: This is an 79-year-old female with a history of laparoscopic cholecystectomy, lower midline incision for pelvic organ prolapse and 'hernia repair' without mesh who presented to our hospital on 10/13/2024 with abdominal pain, nausea and
vomiting in the setting of recent URI and cough. Initial examination was unremarkable but given ongoing nausea and vomiting CT scan was performed which demonstrated a small bowel obstruction with a transition point at a right lower quadrant hernia
for which general surgery was consulted. Fortunately on exam, the hernia was soft and reducible.
No acute surgical intervention warranted however after discussion with the patient about timing (this admission versus close outpatient follow-up) the patient has elected to pursue surgery this admission. She understands that as this is Saturday, the
earliest she could possibly get surgery is Saturday and this would be very much dependent on OR availability.
Given her body habitus and size of the defect, will likely proceed to a robotic ventral hernia repair with mesh.
Can hold off on the NG tube for now.
Abdominal binder
X-ray in the morning to follow contrast.
N.p.o. with ice chips okay until robust return of bowel function then okay for clear liquid diet. Can advance to a full liquid diet at most over the weekend. Please ensure the patient is n.p.o. Saturday at midnight for possible OR Saturday. She will
need Ancef on-call to the OR.
General surgery will follow with serial abdominal exams.
Plan of care discussed with the patient and her many friends at bedside. She is agreeable to plan of care above.
Risks/Benefits/Alternatives, expected postoperative course and possible complications (bleeding, infection, injury to surrounding structures, acute/chronic pain) discussed at length. Patient wishes to proceed with surgery. All questions answered.
I spent 75 minutes in total for the care of this patient today including direct patient care and counseling, reviewing labs, imaging, coordination of care, as well as documentation.
Original Note:
Consultation
-
Date/Time Consultation Requested: 10/16/24 1257
Requesting Provider: Juan Herring
Reason for Consultation: SBO and hernia
Medical History
-
Chief Complaint: nausea/vomiting
History of Present Illness:
Ms Lenz is an 79 yo female with a h/o HTN, cholecystectomy, pelvic organ prolapse repair and hernia repair who presented through the ED on Saturday for evaluation of nausea, vomiting and cough. She is not a clear historian although she does have
some of her friends at bedside assisting her with history. She does note that she felt she had contracted a virus and has been coughing quite a bit of late although she is unclear of when she began having symptoms. She began to have abdominal pain
with nausea and vomiting on October 13, prompting her son to bring her to the ED on Saturday for evaluation. She has had ongoing issues with nausea and it is unclear when her last BM was. She has not been passing flatus. She had noted belching
during exam and stated that she was beginning to feel nauseated again. On exam, her abdomen is not tender, but a soft right lower quadrant hernia was noted which was able to be reduced at bedside. Mild to moderate abdominal distention is present.
Past Medical History
Past Medical History: GERD, HTN and Other (OA, lumbar radiculopathy)
Past Surgical History: Cholecystectomy, Gynecological (surgical repair of pelvic organ prolapse), Hernia Repair (at [facility], reports no mesh was used but unsure where her hernias were) and Orthopedic (foot)
Social History
Tobacco: Non-Smoker
Alcohol: Occasional
Living: Alone (Independent living)
Family History
Family History: Reviewed & Not Pertinent
Allergies / Home Medications
Allergy/AdvReac Type Severity Reaction Status Date / Time
No Known Allergies Allergy Unverified 02/09/24 10:56
�Medication �Instructions �Recorded �Confirmed �Type
acetaminophen 650 mg 1,300 mg PO DAILY arthiritis pain 10/13/24 10/13/24 History
tablet,extended release (Tylenol
Arthritis Pain)
benzonatate 200 mg capsule 200 mg PO TID Cough 10/13/24 10/13/24 History
cholecalciferol (vitamin D3) 50 50 mcg PO QPM Supplement 10/13/24 10/13/24 History
mcg (2,000 unit) tablet (Vitamin
D3)
cyclobenzaprine 10 mg tablet 10 mg PO HSPRN PRN Muscle pain 10/13/24 10/13/24 History
hydrochlorothiazide 25 mg tablet 25 mg PO DAILY Blood Pressure 10/13/24 10/13/24 History
promethazine-DM 6.25 mg-15 mg/5 mL 10 ml PO TID Cough 10/13/24 10/13/24 History
oral syrup
psyllium husk 3.4 gram/5.4 gram 2 tbsp PO DAILY Constipation 10/13/24 10/13/24 History
oral powder (Metamucil)
rosuvastatin 5 mg tablet 5 mg PO HS High Cholesterol 10/13/24 10/13/24 History
solifenacin 5 mg tablet (Vesicare) 5 mg PO DAILY Urinary Issue 10/13/24 10/13/24 History
verapamil 300 mg capsule 24hr 300 mg PO HS Heart 10/13/24 10/13/[address],ext.release Disease/Condition
Review of Systems
-
History Source: Patient
All other systems: Negative unless noted
A 10 point review of systems was completed, and was negative except as per HPI.
Physical Exam
Vital Signs
Temp Pulse Resp BP Pulse Ox
98.9 F 99 19 135/98 99
10/16/24 11:07 10/16/24 11:07 10/16/24 11:07 10/16/24 11:07 10/16/24 11:07
10/15/24 10/16/24 10/17/24
06:59 06:59 06:59
Actual Weight 59.421 kg 58.995 kg
Body Mass Index (BMI) 26.3
Lab Results
10/16/24 08:
10/16/24 08:
WBC 8.5 10^3/uL (4.8-10.8) 10/16/24 08:
Hgb 13.7 g/dL (12.0-16.0) 10/16/24:
Hct 40.2 % (37.0-47.0) 10/16/24:
Plt Count 210 10^3/uL (130-400) 10/16/24:
Abs Immat Gran (auto) 0.0 10^3/uL (0-0.05) 10/16/24:
Neutrophils % 71.5 % (42.2-75.2) 10/16/24 08:
Physical Exam
General: Well Developed and Well Nourished
HEENT: Moist Mucous Membranes
Respiratory: Non Labored Respirations
GI: Soft, Non Tender and Distended
Genito-urinary: Inguinal Hernia (right sided: soft/reducible)
Skin: Warm and Dry
Neuro: Awake, Alert and AO x 3
Psych: Calm
Data Reviewed
-
CT Scan: Image Personally Visualized and interpreted, Report Reviewed by me, Discussed with Physician and Discussed with Patient
Labs: Labs Reviewed by me, Discussed with Physician and Discussed with Patient
Old Records: Reviewed
Assessment / Plan
-
79 yo female with a h/o HTN, cholecystectomy, pelvic organ prolapse repair and hernia repair who presented through the ED on Saturday for evaluation of nausea, vomiting and cough. CT imaging today for persistent GI symptoms was notable for a small
bowel obstruction secondary to a right sided bowel containing inguinal hernia. Fortunately, the hernia was able to be reduced at bedside. She is afebrile without leukocytosis.
--Keep NPO for now, hold off on NGT unless continues to have vomiting
--Will hold off on US imaging given Ct findings
--ABD binder for additional support during her viral illness
--Analgesics/antiemetics as needed
--XR in am to follow PO contrast
Would recommend surgical repair of her hernia with mesh ideally this would be done robotically. Can be planned later this admission vs as an outpatient after recovered from this acute illness pending OR availability/patient course
[2024-10-16 15:19] LABS: Troponin I < 0.012 ng/ml
[2024-10-16] MEDS: D5/0.9% SODIUM CHLORIDE 1000 IV (17:49)
[2024-10-16] MEDS: LOVENOX 40 MG SC (17:52)
[2024-10-16] MEDS: VITAMIN B1 PO (17:55)
[2024-10-16] MEDS: MUCINEX PO (20:13)
[2024-10-16] MEDS: LIPITOR 20 MG PO (20:13)
[2024-10-16 21:48] LABS: Blood Urea Nitrogen 23 mg/dl (7-17); Carbon Dioxide 28 mmol/L (22-30); Chloride 92 mmol/L (98-107); Estimated Creatinine Clearance 49 ml/min; Glucose 104 mg/dl (70-99); Potassium 3.7 mmol/L (3.5-5.1); Sodium 130 mmol/L (135-145); eGFR > 60.00
[2024-10-17 03:56] VITALS: BP 138/76
[2024-10-17 04:53] VITALS: BMI 27.3
[2024-10-17 07:35] VITALS: BP 158/87
[2024-10-17 08:39] LABS: % Basophils 0.6 % (0-2); % Eosinophils 0.3 % (0-6); % Immature Granulocytes 0.2 % (0-0.5); % Lymphocytes 16.7 % (20.5-51.1); % Monocytes 17.5 % (1.7-9.3); % Neutrophils 64.7 % (42.2-75.2); Absolute Lymphocytes 1.1 10^3/uL (1.2-3.4); Absolute Monocytes 1.1 10^3/uL (0.1-0.6); Absolute Neutrophils 4.1 10^3/uL (1.4-6.5); Hemoglobin 13.7 g/dL (12.0-16.0); Mean Corp Hgb Conc. 35.1 g/dL (33.0-37.0); Mean Corpuscular Hgb 30.1 pg (27.0-31.0); Mean Corpuscular Volume 85.7 fL (81.0-99.0); Mean Platelet Volume 9.3 fL (7.4-10.4); Nucleated Red Blood Cells % 0 %; Platelet Count 232 10^3/uL (130-400); Red Blood Cell Count 4.55 10^6/uL (4.20-5.40); Red Cell Dist. Width 12.8 % (11.5-14.5); White Blood Cell Count 6.4 10^3/uL (4.8-10.8)
[2024-10-17 09:20] LABS: ALT (SGPT) 18 U/L (0-35); AST (SGOT) 32 U/L (14-36); Albumin 3.9 g/dl (3.5-5.0); Alkaline Phosphatase 56 U/L (38-126); Blood Urea Nitrogen 22 mg/dl (7-17); Calcium 8.8 mg/dl (8.4-10.2); Carbon Dioxide 30 mmol/L (22-30); Chloride 94 mmol/L (98-107); Estimated Creatinine Clearance 50 ml/min; Glucose 113 mg/dl (70-99); Potassium 3.7 mmol/L (3.5-5.1); Sodium 131 mmol/L (135-145); Total Bilirubin 0.7 mg/dl (0.2-1.3); Total Protein 6.2 g/dl (6.3-8.2); eGFR > 60.00
[2024-10-17] MEDS: COZAAR 25 MG PO (09:53)
[2024-10-17] MEDS: PROTONIX 40 MG PO ×2 (09:53→19:42)
[2024-10-17] MEDS: MUCINEX 600 MG PO (09:55)
[2024-10-17] MEDS: VITAMIN B1 100 MG PO (09:55)
[2024-10-17] MEDS: D5/0.9% SODIUM CHLORIDE 1000 IV (09:56)
[2024-10-17 11:25] VITALS: BP 152/85
--- NOTE | 2024-10-17 12:13 | W.PN.GS2 ---
Today's Communication / Plan
-
Clears
Assessment / Plan
-
79-year-old female with a history of laparoscopic cholecystectomy, lower midline incision for pelvic organ prolapse and 'hernia repair' without mesh who presented to our hospital on 10/13/2024 with abdominal pain, nausea and vomiting in the setting
of recent URI and cough. CT scan demonstrated a small bowel obstruction with a transition point at a right lower quadrant hernia for which general surgery was consulted. Fortunately on exam, the hernia was soft and reducible.
AFVSS
Nausea resolved, now passing flatus
XR in am with persistent SB dilatation but contrast has passed into the colon
Plan:
Ok for clears
Tentative plan for robotic ventral hernia repair with mesh on Saturday. NPO after MN on 10/19 with Ancef insulation board head saw operator to OR.
Abdominal binder/Antitussives
Medical management as per primary team
General surgery will follow with serial abdominal exams.
Subjective Data
-
Date of Service: October 17, 2024
Patient seen and examined at bedside with Dr. Gaspar. Denies n/v. Passing some flatus now. Last episode of nausea was 6pm last night, none since. Still with cough.
Objective Data
-
Intake and Output
10/16/24 10/17/24 10/18/24
06:59 06:59 06:59
Intake Total 1440 / 1440 2039
Balance 1440 / 1440 2039
Intake:
Oral fluids 1440 / 1440 1260 / 1260
IV fluids (Total) 780 / 780
Other:
Number of approximated MODERATE 3 2
amounts of urine
How many times incontinent 3
SMALL amount urine
Vital Signs
Temp Pulse Resp BP Pulse Ox
99 F 88 18 152/85 94
10/17/24 11:25 10/17/24 11:25 10/17/24 11:25 10/17/24 11:25 10/17/24 11:25
Lab Results
10/17/24 07:27
10/17/24 07:27
Calcium 8.8 mg/dl (8.4-10.2) 10/17/24 07:27
Magnesium 2.2 mg/dl (1.6-2.3) 10/16/24 08:23
Total Bilirubin 0.7 mg/dl (0.2-1.3) 10/17/24 07:27
AST 32 U/L (14-36) 10/17/24 07:27
ALT 18 U/L (0-35) 10/17/24 07:27
Alkaline Phosphatase 56 U/L (38-126) 10/17/24 07:27
Total Protein 6.2 g/dl (6.3-8.2) L 10/17/24 07:27
Albumin 3.9 g/dl (3.5-5.0) 10/17/24 07:27
Physical Exam
-
NAD
ABD soft, nt, nd, ABD binder in place
[2024-10-17 15:35] VITALS: BP 165/98
--- NOTE | 2024-10-17 17:08 | W.PN.HOSP.TC ---
Today's Communication/Plan
-
Surgery on Saturday
Okay for clear liquids diet and continue oral medications
Assessment / Plan
Assessment / Plan
Physical Exam
General: Not in acute distress
HEENT: Moist mucous membranes
Respiratory: CTAB
Cardiac: S1/S2 and Regular Rhythm
GI: Soft, Non Distended, Normal Bowel Sounds and Other (Mild epigastric tenderness. No rebound / guarding.)
Musculoskeletal: No Cyanosis and No Edema
Neuro: AAO x 3
Assessment/Plan
Patient is an 79y F with PMH significant for hypertension who presents to ED complaining of cough x several days with nausea and lightheadedness.
Nausea/Vomiting/Abdominal Pain
Small Bowel Obstruction with Right anterolateral pelvic wall hernia
- Surgery consulted, patient opted for surgery which is expected to take place on 10/19/24
- Clear Liquids as per surgery team
- Continue IV fluids
Hyponatremia - Chronic
- This is at least partly secondary to HCTZ therapy.
- HCTZ was started in January 2024. Prior records note normal sodium level in December 2023 and hyponatremia at both ED visits since that time.
- Stop HCTZ and would not resume this medication.
- Fluid restriction for now and follow for improvement in Na levels.
Benign Hypertension
- Stable.
- Stop HCTZ as noted above.
- Losartan on hold due to strict NPO
- Patient's blood pressure is controlled while Verapamil is on hold
- If BP high, can use IV medications
OAB
- Stable. Continue Vesicare.
DVT Prophylaxis: Lovenox
Code Status: Full Code
Anticipated Discharge: > 48 hours
Subjective/Interval History
-
Date of Service: October 17, 2024
Patient was seen and examined. She denied any new complaints.
Objective Data
-
Labs:
Laboratory Results
10/17/24
07:27
WBC 6.4
Hgb 13.7
Hct 39.0
Plt Count 232
Sodium 131 L
Potassium 3.7
Chloride 94 L
Carbon Dioxide 30
BUN 22 H
Creatinine 0.7
Glucose 113 H
Calcium 8.8
Total Bilirubin 0.7
AST 32
ALT 18
Alkaline Phosphatase 56
Vital Signs:
Vital Signs
Temp Pulse Resp BP Pulse Ox
99.6 F 92 20 165/98 92
10/17/24 15:35 10/17/24 15:35 10/17/24 15:35 10/17/24 15:35 10/17/24 15:35
I&O
10/16/24 10/17/24 10/18/24
06:59 06:59 06:59
Intake Total 1440 / 1440 2039
Balance 1440 / 1440 2039
[2024-10-17] MEDS: LOVENOX 40 MG SC (18:42)
[2024-10-17 19:00] VITALS: BP 165/85
[2024-10-17] MEDS: MUCINEX PO (19:41)
[2024-10-17] MEDS: ZOFRAN 4 MG IV (21:26)
[2024-10-17] MEDS: LIPITOR PO (21:29)
[2024-10-17 23:00] VITALS: BP 157/84
[2024-10-18] MEDS: D5/0.9% SODIUM CHLORIDE 1000 IV ×2 (01:16→23:17)
[2024-10-18] MEDS: COMPAZINE 5 MG IV (02:51)
[2024-10-18 03:00] VITALS: BP 165/86
[2024-10-18 06:00] VITALS: BMI 27.5
[2024-10-18 07:13] VITALS: BP 143/90; BP 150/90; BP 155/90; PULSE 100; PULSE 86; PULSE 94
--- NOTE | 2024-10-18 07:23 | W.PN.HOSP.TC ---
Today's Communication/Plan
-
Surgery tomorrow
Continue IV fluids -- monitor potassium closely, repeat BMPs ordered for tonight, IV fluid regimen may need to be adjusted depending on the potassium levels
Assessment / Plan
Assessment / Plan
Physical Exam
General: Not in acute distress
HEENT: Moist mucous membranes
Respiratory: CTAB
Cardiac: S1/S2 and Regular Rhythm
GI: Soft, Non Distended, Normal Bowel Sounds and Other (Mild epigastric tenderness. No rebound / guarding.)
Musculoskeletal: No Cyanosis and No Edema
Neuro: AAO x 3
Assessment/Plan
Patient is an 79 y/o female with past medical history significant for hypertension who presented to the ED complaining of cough x several days with nausea and lightheadedness.
Nausea/Vomiting/Abdominal Pain
Small Bowel Obstruction with Right anterolateral pelvic wall hernia
- Surgery consulted, patient opted for surgery which is expected to take place on 10/19/24
- NPO as patient was vomiting with clear liquids
- Continue IV fluids
- Tentative plan for robotic ventral hernia repair with mesh on 10/19/24
Hyponatremia - Chronic
- This is at least partly secondary to HCTZ therapy.
- HCTZ was started in January 2024. Prior records note normal sodium level in December 2023 and hyponatremia at both ED visits since that time.
- Stop HCTZ and would not resume this medication.
- Fluid restriction for now and follow for improvement in Na levels.
Benign Hypertension
- Stable.
- Stop HCTZ as noted above.
- Losartan on hold due to strict NPO
- Patient's blood pressure is controlled while Verapamil is on hold
- If BP high, can use IV medications
OAB
- Stable. Continue Vesicare.
DVT Prophylaxis: Lovenox
Code Status: Full Code
Anticipated Discharge: > 48 hours
Subjective/Interval History
-
Date of Service: October 18, 2024
Patient was seen and examined. She was nauseous overnight and received Zofran.
Objective Data
-
Labs:
Laboratory Results
10/18/24
06:48
WBC Pending
Hgb Pending
Hct Pending
Plt Count Pending
Sodium Pending
Potassium Pending
Chloride Pending
Carbon Dioxide Pending
BUN Pending
Creatinine Pending
Glucose Pending
Calcium Pending
Total Bilirubin Pending
AST Pending
ALT Pending
Alkaline Phosphatase Pending
Vital Signs:
Vital Signs
Temp Pulse Resp BP Pulse Ox
98.4 F 89 20 165/86 97
10/18/24 03:00 10/18/24 03:00 10/18/24 03:00 10/18/24 03:00 10/18/24 03:00
I&O
10/17/24 10/18/24 10/19/24
06:59 06:59 06:59
Intake Total 2039 2580 / 2580
Balance 2039 2580 / 2580
[2024-10-18 08:11] LABS: % Basophils 0.3 % (0-2); % Eosinophils 0.3 % (0-6); % Immature Granulocytes 0.3 % (0-0.5); % Lymphocytes 14.8 % (20.5-51.1); % Monocytes 15.4 % (1.7-9.3); % Neutrophils 68.9 % (42.2-75.2); Absolute Neutrophils 4.6 10^3/uL (1.4-6.5); Hematocrit 37.8 % (37.0-47.0); Hemoglobin 12.7 g/dL (12.0-16.0); Mean Corp Hgb Conc. 33.6 g/dL (33.0-37.0); Mean Corpuscular Hgb 29.2 pg (27.0-31.0); Mean Corpuscular Volume 86.9 fL (81.0-99.0); Nucleated Red Blood Cells % 0 %; Platelet Count 253 10^3/uL (130-400); Red Blood Cell Count 4.35 10^6/uL (4.20-5.40); Red Cell Dist. Width 12.7 % (11.5-14.5); White Blood Cell Count 6.7 10^3/uL (4.8-10.8)
[2024-10-18 08:36] LABS: ALT (SGPT) 17 U/L (0-35); AST (SGOT) 27 U/L (14-36); Albumin 3.7 g/dl (3.5-5.0); Alkaline Phosphatase 53 U/L (38-126); Blood Urea Nitrogen 16 mg/dl (7-17); Calcium 8.7 mg/dl (8.4-10.2); Carbon Dioxide 28 mmol/L (22-30); Chloride 99 mmol/L (98-107); Estimated Creatinine Clearance 59 ml/min; Glucose 114 mg/dl (70-99); Potassium 3.2 mmol/L (3.5-5.1); Sodium 135 mmol/L (135-145); Total Bilirubin 0.6 mg/dl (0.2-1.3); eGFR > 60.00
[2024-10-18] MEDS: PROTONIX 40 MG PO ×2 (09:22→20:29)
[2024-10-18] MEDS: COZAAR 25 MG PO (09:23)
[2024-10-18] MEDS: VITAMIN B1 100 MG PO (09:23)
[2024-10-18] MEDS: MUCINEX PO ×2 (09:23→20:29)
--- NOTE | 2024-10-18 10:21 | W.PN.GS2 ---
Today's Communication / Plan
-
NPO
Assessment / Plan
-
79-year-old female with a history of laparoscopic cholecystectomy, lower midline incision for pelvic organ prolapse and 'hernia repair' without mesh who presented to our hospital on 10/13/2024 with abdominal pain, nausea and vomiting in the setting
of recent URI and cough. CT scan demonstrated a small bowel obstruction with a transition point at a right lower quadrant hernia for which general surgery was consulted.
AFVSS
Passing flatus, but with recurrence of n/v with clear liquid diet.
XR on 10/17 with persistent SB dilatation but contrast has passed into the colon
Hernia remains soft reducible
Plan:
Keep NPO
Continue IVF
Tentative plan for robotic ventral hernia repair with mesh on Saturday
Abdominal binder/Antitussives
Medical management as per primary team
General surgery will follow with serial abdominal exams.
Subjective Data
-
Date of Service: October 18, 2024
Patient seen and examined at bedside with Dr. Gaspar. Still passing flatus but with bilious emesis x2 overnight. Denies pain.
Objective Data
-
Intake and Output
10/17/24 10/18/24 10/19/24
06:59 06:59 06:59
Intake Total 2039 2580 / 2580
Balance 2039 / 2039 2580 / 2580
Intake:
Oral fluids 1260 / 1260 1140 / 1140
IV fluids (Total) 780 / 780 1440 / 1440
Other:
Number of approximated MODERATE 2 3
amounts of urine
Number of immeasurable emeses? 2
Vital Signs
Temp Pulse Resp BP Pulse Ox
98.8 F 86 18 143/90 93
10/18/24 07:13 10/18/24 07:13 10/18/24 07:13 10/18/24 07:13 10/18/24 07:13
Lab Results
10/18/24 06:48
10/18/24 06:48
Calcium 8.7 mg/dl (8.4-10.2) 10/18/24 06:48
Magnesium 2.2 mg/dl (1.6-2.3) 10/16/24 08:23
Total Bilirubin 0.6 mg/dl (0.2-1.3) 10/18/24 06:48
AST 27 U/L (14-36) 10/18/24 06:48
ALT 17 U/L (0-35) 10/18/24 06:48
Alkaline Phosphatase 53 U/L (38-126) 10/18/24 06:48
Total Protein 6.0 g/dl (6.3-8.2) L 10/18/24 06:48
Albumin 3.7 g/dl (3.5-5.0) 10/18/24 06:48
Physical Exam
-
NAD
ABD soft, nt, nd, ABD binder in place
Right inguinal hernia soft, reducible
[2024-10-18 11:07] VITALS: BP 146/83
[2024-10-18] MEDS: KCL 270 MEQ IV (12:35)
[2024-10-18 15:09] VITALS: BP 138/86
[2024-10-18] MEDS: LOVENOX 40 MG SC (18:24)
[2024-10-18 19:00] VITALS: BP 105/89
[2024-10-18] MEDS: LIPITOR 20 MG PO (20:29)
[2024-10-18 21:41] LABS: Blood Urea Nitrogen 15 mg/dl (7-17); Calcium 8.6 mg/dl (8.4-10.2); Carbon Dioxide 26 mmol/L (22-30); Chloride 103 mmol/L (98-107); Estimated Creatinine Clearance 59 ml/min; Glucose 102 mg/dl (70-99); Potassium 3.7 mmol/L (3.5-5.1); Sodium 135 mmol/L (135-145); eGFR > 60.00
[2024-10-18 23:00] VITALS: BP 146/76
[2024-10-19] VITALS (12 sets, daily range): BP systolic 102–170; BP diastolic 57–96; PULSE 84–103; BMI 26.8
[2024-10-19 02:20] LABS: Blood Urea Nitrogen 13 mg/dl (7-17); Calcium 8.5 mg/dl (8.4-10.2); Carbon Dioxide 27 mmol/L (22-30); Chloride 103 mmol/L (98-107); Estimated Creatinine Clearance 59 ml/min; Glucose 99 mg/dl (70-99); Potassium 3.6 mmol/L (3.5-5.1); Sodium 136 mmol/L (135-145); eGFR > 60.00
[2024-10-19] MEDS: VITAMIN B1 100 MG PO (08:00)
[2024-10-19] MEDS: PROTONIX 40 MG PO ×2 (08:00→20:27)
[2024-10-19] MEDS: COZAAR 25 MG PO (08:00)
[2024-10-19] MEDS: MUCINEX 600 MG PO (08:00)
[2024-10-19 08:37] LABS: % Basophils 0.5 % (0-2); % Eosinophils 1.6 % (0-6); % Immature Granulocytes 0.4 % (0-0.5); % Lymphocytes 16.8 % (20.5-51.1); % Monocytes 17.7 % (1.7-9.3); Absolute Eosinophils 0.1 10^3/uL (0-0.7); Absolute Lymphocytes 0.9 10^3/uL (1.2-3.4); Absolute Neutrophils 3.5 10^3/uL (1.4-6.5); Hemoglobin 13.1 g/dL (12.0-16.0); Mean Corp Hgb Conc. 33.6 g/dL (33.0-37.0); Mean Corpuscular Volume 86.3 fL (81.0-99.0); Mean Platelet Volume 8.8 fL (7.4-10.4); Nucleated Red Blood Cells % 0 %; Platelet Count 224 10^3/uL (130-400); Red Blood Cell Count 4.52 10^6/uL (4.20-5.40); Red Cell Dist. Width 12.8 % (11.5-14.5); White Blood Cell Count 5.6 10^3/uL (4.8-10.8)
[2024-10-19 09:26] LABS: ALT (SGPT) 18 U/L (0-35); AST (SGOT) 30 U/L (14-36); Albumin 3.6 g/dl (3.5-5.0); Alkaline Phosphatase 50 U/L (38-126); Blood Urea Nitrogen 13 mg/dl (7-17); Calcium 8.7 mg/dl (8.4-10.2); Carbon Dioxide 22 mmol/L (22-30); Chloride 104 mmol/L (98-107); Estimated Creatinine Clearance 58 ml/min; Glucose 90 mg/dl (70-99); Potassium 3.7 mmol/L (3.5-5.1); Sodium 136 mmol/L (135-145); eGFR > 60.00
--- NOTE | 2024-10-19 09:32 | W.SUR.PREOP ---
Pre-Operative Surgical Note
-
I have examined this patient prior to the performance of the scheduled procedure.
The patient's condition is unchanged from the time of the current History and
Physical and the patient is able to undergo the scheduled procedure.
--- NOTE | 2024-10-19 10:39 | CM ---
CM reviewed chart, patient off floor, for OR today. CM will continue to follow for all discharge planning needs.
Plan; watch for VN needs upon discharge.
--- NOTE | 2024-10-19 12:05 | W.IMMPOSTOP ---
Surgical Immed Post Op Note
-
Primary Surgeon: Nishant Foster MD
Assisting Surgeon: None
Pre-op Diagnosis: Right inguinal hernia
Post-op Diagnosis: Same
Procedure Performed: Laparoscopic converted to open right inguinal hernia repair with mesh (Celio repair)
Anesthesia Type: General
Specimen / Cultures:
1. Right inguinal nerves x 2
2. Right cord lipoma.
3. Hernia sac
Estimated Blood Loss: 3 cc
Complications: None
Operative Findings: Left subcostal Veress entry which required a single pass followed by a 8 mm blind entry just to the right of midline 15 cm above the level of the ASIS. No bowel injury noted on entry, though the Veress needle could not be
identified. Significant adhesions encountered so we elected to convert to an open right inguinal hernia repair with mesh. The patient had a very large indirect hernia sac tracking posterior laterally from the deep ring. After opening up the
hernia sac there was a: Plastered on the inner lining consistent with a sliding component. The round ligament was isolated and ligated. The hernia sac after debulking was closed and returned to the abdomen. The deep ring was imbricated using a
2-0 Vicryl suture. The ilioinguinal and iliohypogastric nerves were identified and resected as the were redundant and laid across our field. The floor was then reinforced with a 7.5 x 15 cm Bard flat mesh that was cut to size and secured to the
shelving edge and conjoined tendon with 0 PDS suture to achieve a tension-free repair.
POST OP PLAN:
Imaging: None
Labs: Routine AM
Diet: Clears today, can advance to low residue diet tomorrow pending clinical course and bowel function
Analgesia: Tylenol 650mg q6 Mynor, Katerina 5mg q6 PRN, Dilaudid 0.5mg q2h PRN
Neuro/vascular checks: q4h
AC/AP: Hold Therapeutic AC, Ok for DVT PPx
Activity: Ad Renetta
Wound/Incisions/Drains: Routine
Abx: None
Dispo: RNF, anticipate discharge home tomorrow.
--- NOTE | 2024-10-19 12:11 | OR.RPT ---
Operative Report
Operative Report
Patient Name: Gertrudis Lenz
: 1945
Date of Operation: 10/19/2044
Preoperative Diagnosis: Reducible Inguinal hernia, right
Postoperative Diagnosis: Same
Procedure(s):
Laparoscopic converted to open right Inguinal Hernia Repair
Surgeon(s):
Dr. Foster
Condenser Cleaner(s):
LIT Chaidez
Anesthesia: General
Estimated Blood Loss: 3 cc
Urine Output: None
Drains/Lines/Implants: 3 x 6 inch Bard Flat Mesh cut to size
Specimen / Cultures:
1. Right inguinal nerves x 2
2. Right cord lipoma.
3. Hernia sac
Indication for surgery: This is an 79-year-old female with a history of laparoscopic cholecystectomy, lower midline incision for pelvic organ prolapse and 'hernia repair' ?without mesh who presented to our hospital on 10/13/2024 with abdominal pain,
nausea and vomiting in the setting of recent URI and cough. Initial examination was unremarkable but given ongoing nausea and vomiting CT scan was performed which demonstrated a small bowel obstruction with a transition point at a right lower
quadrant hernia for which general surgery was consulted. Fortunately on exam, the hernia was soft and reducible. Following review of therapeutic options they has elected to undergo a surgical repair.
Operative Findings: Left subcostal Veress entry which required a single pass followed by a 8 mm blind entry just to the right of midline 15 cm above the level of the ASIS. No bowel injury noted on entry, though the Veress needle could not be
identified. Significant adhesions encountered so we elected to convert to an open right inguinal hernia repair with mesh. The patient had a very large indirect hernia sac tracking posterior laterally from the deep ring. There was a cord lipoma
that was isolated and ligated. There was no direct component. After opening up the hernia sac there was a: Plastered on the inner lining consistent with a sliding component. The round ligament was isolated and ligated. The hernia sac after
debulking was closed and returned to the abdomen. The deep ring was imbricated using a 2-0 Vicryl suture. The ilioinguinal and iliohypogastric nerves were identified and resected as the were redundant and laid across our field. The floor was then
reinforced with a 7.5 x 15 cm Bard flat mesh that was cut to size and secured to the shelving edge and conjoined tendon with 0 PDS suture to achieve a tension-free repair.
Details of the operation:
Following uneventful induction of general endotracheal anesthesia, an orogastric tube were placed. The abdomen was prepped and draped in the usual sterile fashion. The abdomen was entered using a Veress technique which required 1 pass,
pneumoperitoneum to 15 mmHg was obtained without difficulty, but there was limited distention of the abdomen. An 8mm trochar was passed through the abdominal wall roughly 20 cm cephalad to the inguinal canal. Visualization on entry was very
difficult due to significant intra-abdominal adhesions, significantly more than what was expected given her reported surgical history. We then confirmed that no inadvertent injury was made while passing the trocar, we were unfortunately unable to
visualize the Veress needle, which was removed. Given the degree of adhesions, we elected to convert to an open procedure. The ASIS and pubic tubercle were marked and an incision was chosen along the course of a skin line. The skin was
anesthestized with Lidocaine. An incision was made through the skin line and dissection carried down through subcutaneous tissue and Sherita's fascia. The superficial epigastric vein was identified and ligated. A Small Johnathan wound retractor was
used to provide exposure. The external oblique fibers were then divided in the direction of travel. The ilioinguinal and iliohypogastric nerves were sacrificed. Dissection was carried down to the floor, which revealed the following:
At the site of the indirect (internal) ring, there was a large hernia sac was identified, dissected and reduced off the round ligament. It extended posterior laterally, consistent with what was seen on her preoperative CT scan. The sac was opened
and noted to have black spots consistent with prior tattoo/ink. There was also: Adherent on the medial aspect of the hernia sac consistent with a sliding hernia. The hernia sac was resected up to this level and closed with a running Vicryl suture.
The deep ring was then imbricated closed with 2 [id number] 0 Vicryl sutures. The round ligament was ligated at the level of the deep ring as well.
A cord lipoma was also identified and resected.
The direct space, floor of the canal revealed no weakness.
The floor of the canal was then reconstructed by placing a 6x3 in BARD flat polypropylene mesh trimmed to size and secured it in place with interrupted 0-PDS sutures medially at the pubic tubercle, inferiorly along the inguinal ligament,
laterally/superiorly in the conjoint tendon.The external oblique fibers were then closed using a running 2-0 Vicryl suture. Sherita's fascia was then closed with interrupted 3-0 Vicryl suture. The skin was closed in layers with interrupted 3-0
vicryl deep dermals followed by a running subcuticular 4-0 Monocryl followed by dermabond. The 8 mm port site was also closed with a 4-0 Monocryl and Dermabond as was the Veress needle entry site. The patient returned to the Recovery Room in stable
condition. Sponge and instrument counts were correct. No specimens sent to Pathology.
I was the attending physician and performed the procedure with assistance from the RETAIL CLIENT MANAGER above. I was present for all portions of the case, except skin closure.
Nishant Foster MD
[2024-10-19] MEDS: D5/0.9% SODIUM CHLORIDE 1000 IV (15:04)
[2024-10-19] MEDS: LOVENOX 40 MG SC (15:05)
--- NOTE | 2024-10-19 19:12 | W.PN.HOSP.TC ---
Today's Communication/Plan
-
Had hernia repair today
Expected to be able to be discharged tomorrow
Assessment / Plan
Assessment / Plan
Physical Exam
Physical exam was not performed as patient was not present in her room at the time of
Assessment/Plan
Patient is an 79 y/o female with past medical history significant for hypertension who presented to the ED complaining of cough x several days with nausea and lightheadedness.
Nausea/Vomiting/Abdominal Pain
Small Bowel Obstruction with Right anterolateral pelvic wall hernia status post open inguinal hernia repair on October 19, 2024
- Surgery consulted, patient opted for surgery which is expected to take place on 10/19/24
- Clear Liquids Diet
- Tentative plan for robotic ventral hernia repair with mesh on 10/19/24
Hyponatremia - Chronic
- This is at least partly secondary to HCTZ therapy.
- HCTZ was started in January 2024. Prior records note normal sodium level in December 2023 and hyponatremia at both ED visits since that time.
- Stop HCTZ and would not resume this medication.
- Fluid restriction for now and follow for improvement in Na levels.
Benign Hypertension
- Stable.
- Stop HCTZ as noted above.
- Losartan on hold due to strict NPO
- Patient's blood pressure is controlled while Verapamil is on hold
- If BP high, can use IV medications
OAB
- Stable. Continue Vesicare.
DVT Prophylaxis: Lovenox
Code Status: Full Code
Anticipated Discharge: Within 24 hours
Subjective/Interval History
-
Date of Service: October 19, 2024
Patient was not present in her room at the time of attempted patient encounter as she had gone down to the operating room.
Objective Data
-
Labs:
Laboratory Results
10/19/24
07:52
WBC 5.6
Hgb 13.1
Hct 39.0
Plt Count 224
Sodium 136
Potassium 3.7
Chloride 104
Carbon Dioxide 22
BUN 13
Creatinine 0.6
Glucose 90
Calcium 8.7
Total Bilirubin 1.0
AST 30
ALT 18
Alkaline Phosphatase 50
Vital Signs:
Vital Signs
Temp Pulse Resp BP Pulse Ox
98.1 F 89 18 165/84 95
10/19/24 15:48 10/19/24 15:48 10/19/24 15:48 10/19/24 15:48 10/19/24 15:48
I&O
10/18/24 10/19/24 10/20/24
06:59 06:59 06:59
Intake Total 2580 / 2580 540 / 540 2114
Balance 2580 / 2580 540 / 540 2114
[2024-10-19] MEDS: LIPITOR 20 MG PO (20:27)
[2024-10-19] MEDS: MUCINEX PO (20:27)
--- NOTE | 2024-10-20 03:15 | PTCARENOTE ---
Pt's IVFs due for renew/stop. 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 Pt tolerating clear liquids, passing flatus overnight and no complaints of nausea/vomiting.
[2024-10-20 03:32] VITALS: BP 158/88
[2024-10-20 06:00] VITALS: BMI 27.1
[2024-10-20 07:40] VITALS: BP 152/78
[2024-10-20] MEDS: VITAMIN B1 100 MG PO (07:54)
[2024-10-20] MEDS: PROTONIX 40 MG PO (07:54)
[2024-10-20] MEDS: COZAAR 25 MG PO (07:54)
[2024-10-20] MEDS: MUCINEX PO (07:54)
[2024-10-20 09:07] LABS: Hematocrit 37.3 % (37.0-47.0); Hemoglobin 12.9 g/dL (12.0-16.0); Mean Corp Hgb Conc. 34.6 g/dL (33.0-37.0); Mean Corpuscular Volume 86.7 fL (81.0-99.0); Mean Platelet Volume 9.1 fL (7.4-10.4); Platelet Count 281 10^3/uL (130-400); Red Cell Dist. Width 12.9 % (11.5-14.5); White Blood Cell Count 8.3 10^3/uL (4.8-10.8)
[2024-10-20 10:35] LABS: Blood Urea Nitrogen 12 mg/dl (7-17); Calcium 8.7 mg/dl (8.4-10.2); Carbon Dioxide 26 mmol/L (22-30); Chloride 100 mmol/L (98-107); Estimated Creatinine Clearance 58 ml/min; Glucose 119 mg/dl (70-99); Potassium 3.8 mmol/L (3.5-5.1); Sodium 135 mmol/L (135-145); eGFR > 60.00
--- NOTE | 2024-10-20 11:24 | CM ---
CM reviewed chart, patient seen bedside with friend. Patient denies needs upon discharge, CM offered VN to patient, declining, reports patients granddaughters and friends/family will be staying with patient. IMM reviewed verbally, agreeable to form,
placed in chart. CM will continue to follow for all discharge planning needs.
Plan; home no needs.
--- NOTE | 2024-10-20 11:49 | W.PN.GS2 ---
Today's Communication / Plan
-
Dispo planning
Assessment / Plan
-
79-year-old female with a history of laparoscopic cholecystectomy, lower midline incision for pelvic organ prolapse and 'hernia repair' without mesh who presented to our hospital on 10/13/2024 with abdominal pain, nausea and vomiting in the setting
of recent URI and cough. CT scan demonstrated a small bowel obstruction with a transition point at a right lower quadrant hernia for which general surgery was consulted. POD #1 laparoscopic converted to open right inguinal hernia repair with mesh
due to intra-abdominal adhesions.
Plan:
Advance to a regular diet abdominal binder/Antitussives
Dispo as per primary team
Patient to follow-up with me as an outpatient. Discharge instructions placed.
Time Spent
Total Time Spent with Patient (in minutes): 10
Subjective Data
-
Date of Service: October 20, 2024
Interval Events:
No acute events overnight. Slept well. Pain Controlled. Denies Nausea/Vomiting, +bowel function. Tolerating diet.
Objective Data
-
Intake and Output
10/19/24 10/20/24 10/21/24
06:59 06:59 06:59
Intake Total 540 / 540 2955 / 2955
Balance 540 / 540 2955 / 2955
Intake:
Oral fluids 540 / 540 1680 / 1680
IV fluids (Total) 1275 / 1275
normosol 75 / 75
Other:
Number of approximated MODERATE 1
amounts of urine
Number of approximated LARGE 2
amounts of urine
Vital Signs
Temp Pulse Resp BP Pulse Ox
98.5 F 86 18 152/78 97
10/20/24 07:40 10/20/24 07:40 10/20/24 07:40 10/20/24 07:40 10/20/24 07:40
Lab Results
10/20/24 08:16
10/20/24 10:07
Calcium 8.7 mg/dl (8.4-10.2) 10/20/24 10:07
Magnesium Cancelled 10/20/24 08:16
Total Bilirubin 1.0 mg/dl (0.2-1.3) 10/19/24 07:52
AST 30 U/L (14-36) 10/19/24 07:52
ALT 18 U/L (0-35) 10/19/24 07:52
Alkaline Phosphatase 50 U/L (38-126) 10/19/24 07:52
Total Protein 6.0 g/dl (6.3-8.2) L 10/19/24 07:52
Albumin 3.6 g/dl (3.5-5.0) 10/19/24 07:52
Physical Exam
-
GENERAL/NEURO: Awake, Alert, no distress
CHEST: Unlabored breathing on RA
ABDOMEN: Soft, Non-Tender, Non-Distended
EXTREMITIES: warm, well perfused, no jaundice, no cyanosis, n, incisions clean dry and intact. There is some julio-incisional bruising around her right inguinal incision but stable and soft. No impulse with coughing.
[2024-10-20 11:52] VITALS: BP 168/85
--- NOTE | 2024-10-20 14:05 | PN.CDI ---
CDI
- -
CDI:
Physician Documentation Request
Admit Date: 10/16/24 09:29
Dear Doctor Nima,
Please review the following and provide your response in the progress notes.
Clinical Indicators:
- Production Control Manager note indicates severe protein calorie malnutrition meeting ASPEN criteria:
- Unintentional weight loss >2% in 1 week
- Nutrient intake </=50% estimated energy needs >/= 5 days
Based on the above information and your assessment, which of the following most accurately represents the patient's nutritional status?
Severe protein calorie malnutrition
Other (please specify)
Lima Criteria ([facility] Hospitalist 2017)
2 or more criteria must be present for either
non severe or severe malnutrition
Note that the criteria differs related to the
presence of an acute or chronic illness
Acute Illness Chronic Illness
Energy Intake Non Severe: <75% for >7 days Non Severe: <75% for >1 month
Severe: <50% for >5 days Severe: <75% for >1 month
Weight Loss Non Severe: 1-2% over 1 week Non Severe: 5% over 1 month
5% over 1 month 7.5% over 3 months
7.5% over 3 months 10% over 6 months
1 year N/A 20% over 1 year
Severe: >2% over 1 week Severe: >5% over 1 month
>5% over 1 month >7.5% over 3 months
>7.5% over 3 months >10% over 6 months
1 year N/A >20% over 1 year
Body Fat Non Severe: Mild Decrease Non Severe: Mild Loss
Severe: Moderate Decrease Severe: Severe Loss
Muscle Mass Non Severe: Mild Decrease Non Severe: Mild Loss
Severe: Moderate Decrease Severe: Severe Loss
Fluid Accumulation Non Severe: Mild Accumulation Non Severe: Mild Accumulation
Severe: Moderate to severe Severe: Moderate to severe
accumulation accumulation
Reduced Joint Cleaning Machine Operator Strength Non Severe: N/A Non Severe: N/A
Severe: Measurably reduced Severe: Measurably reduced
Additional criteria that can be used to Determine if Mild or Moderate Malnutrition ([employer] Manual 2018)
Mild Moderate Severe
Albumin gm/dl <3.0 gm/dl <2.5 gm/dl <2.0 gm/dl
Pre Albumin mg/dl <15 gm/dl <10 mg/dl <5.0 mg/dl
BMI <18.5 <17 <16
Use of terms such as suspected, likely, concern for, or probable (associated with a specific diagnosis that is being evaluated, monitored, or treated as if it exists) are acceptable and can be coded in the inpatient setting, when documented at the
time of discharge.
Thank you,
Gabriel Alvarado RN
CDI Specialist
Please use your independent medical judgment in providing your response.
--- NOTE | 2024-10-20 14:52 | W.PN.HOSP.TC ---
Addendum entered and electronically signed by Juan Herring MD 10/20/24 16:57:
Severe protein calorie malnutrition
Addendum entered and electronically signed by Juan Herring MD 10/20/24 16:56:
I discussed with patient her blood pressure medication regimen on discharge, and she insisted on continuing her HCTZ and Verapamil on discharge. She said she will follow-up with her PCP about whether or not stop HCTZ given her recent hyponatremia.
Original Note:
Today's Communication/Plan
-
Discharge today
Assessment / Plan
Assessment / Plan
Physical Exam
General: Not in acute distress
HEENT: Moist mucous membranes
Respiratory: CTAB
Cardiac: S1/S2 and Regular Rhythm
GI: Soft, Non Distended, Non Tender, Normal Bowel Sounds
Musculoskeletal: No Cyanosis and No Edema
Neuro: AAO x 3
Assessment/Plan
Patient is an 79 y/o female with past medical history significant for hypertension who presented to the ED complaining of cough x several days with nausea and lightheadedness.
Nausea/Vomiting/Abdominal Pain
Small Bowel Obstruction with Right anterolateral pelvic wall hernia status post open inguinal hernia repair on October 19, 2024
- Tolerating diet
- Okay for discharge home today with regular diet with abdominal binder/Antitussives
- Follow-up with Dr. Nishant Foster
Hyponatremia - Chronic - RESOLVED
- This is at least partly secondary to HCTZ therapy.
- HCTZ was started in January 2024. Prior records note normal sodium level in December 2023 and hyponatremia at both ED visits since that time.
- Stop HCTZ and would not resume this medication.
- Fluid restriction for now and follow for improvement in Na levels.
Benign Hypertension
- Stable to high range right now
- Stop HCTZ as noted above.
- Resume Losartan
- Discuss with your PCP when to resume home Verapamil
- Low sodium diet at home
OAB
- Stable. Continue Vesicare.
DVT Prophylaxis: Lovenox
Code Status: Full Code
More than 30 minutes spent in discharge including
Final examination of the patient
Summarizing hospital stay
Instructions for continuing care to all relevant caregivers
Preparation of discharge records, prescriptions, and referral forms
Total time spent (in minutes): 33
Anticipated Discharge: Today
Subjective/Interval History
-
Date of Service: October 20, 2024
Patient was seen and examined. She reported tolerating her diet, she denied any nausea or vomiting, and has been having bowel movements per her.
Objective Data
-
Labs:
Laboratory Results
10/20/24 10/20/24
08:16 10:07
WBC 8.3
Hgb 12.9
Hct 37.3
Plt Count 281 D
Sodium Cancelled 135
Potassium Cancelled 3.8
Chloride Cancelled 100
Carbon Dioxide Cancelled 26
BUN Cancelled 12
Creatinine Cancelled 0.6
Glucose Cancelled 119 H
Calcium Cancelled 8.7
Vital Signs:
Vital Signs
Temp Pulse Resp BP Pulse Ox
98.3 F 93 18 168/85 96
10/20/24 11:52 10/20/24 11:52 10/20/24 11:52 10/20/24 11:52 10/20/24 11:52
I&O
10/19/24 10/20/24 10/21/24
06:59 06:59 06:59
Intake Total 540 / 540 2955 / 2955
Balance 540 / 540 2955 / 2955
[2024-10-20 15:23] VITALS: BP 172/95
--- NOTE | 2024-10-22 17:53 | W.DCSUMMARY ---
Discharge Summary
Discharge Data
Date of Admission: 10/16/24
Date of Discharge: 10/20/24
Total time spent discharging patient (in min): 33
-
Pending Results: Yes (Surgical pathology results)
Hospital Course
79 y/o female with past medical history of hypertension, history of laparoscopic cholecystectomy, lower midline incision for pelvic organ prolapse and 'hernia repair' without mesh, presented with cough and URI symptoms, epigastric discomfort, nausea
and lightheadedness for several days. Patient was initially thought to have had a viral syndrome, supportive care was given and her hydrochlorothiazide was held due to hyponatremia. Her home Verapamil was continued and Losartan was started (Losartan
was started in order to replace Hydrochlorothiazide). Chest x-ray suggested cardiomegaly, echocardiogram was done, and it showed mild concentric left ventricular hypertrophy, left ventricular ejection fraction 60-65% and mild tricuspid
regurgitation. Given patient's persistent nausea and epigastric abdominal pain, and eating and drinking fluids in relatively little amounts, CT Abdomen Pelvis was ordered, and the CT showed a small bowel obstruction with a transition point at a
right lower quadrant hernia. General surgery was therefore consulted and they recommended no acute surgical intervention, but an elective surgery was recommended. Patient wanted the surgery to be done during the same hospitalization. On October 19,
2024, patient had a laparoscopic converted to open right inguinal hernia repair. The day after surgery, patient was doing well, tolerated her diet, and demonstrated return of bowel function. Case was discussed with general surgeon and patient was
stable for discharge from his standpoint. Patient had some quite high blood pressure readings during the hospitalization and it was discussed with the patient blood pressure medication regimen on discharge and she insisted on continuing her
hydrochlorothiazide and Verapamil on discharge (not Losartan and Verapamil combination); she said she would follow-up with her primary care provider about whether or not to stop hydrochlorothiazide given her recent hyponatremia.
Discharge Plan
-
Patient Disposition: Home (Routine Discharge)
Discharge Diagnosis/Procedures: Right inguinal hernia/small bowel obstruction. Laparoscopic converted to open right inguinal hernia repair
Hyponatremia - Chronic - RESOLVED
Benign Hypertension
OAB
Severe calcific atherosclerotic plaque in the thoracic aorta
Mild elevation of the right hemidiaphragm
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
Severe multilevel thoracic discogenic degenerative disease
Condition: Good
Diet: As tolerated, Low Sodium and Restrict fluids to 48 oz
Activity: No strenuous activity
Bathing Restrictions: OK to Shower
Activity Restrictions/Additional Instructions:
Instructions following inguinal Hernia Repair
Please call [phone] if you have any questions or concerns after your surgery.
Wound Care:
Your incisions are covered with skin glue which will come off on its own in 5-10 days.
It is ok to shower the day after your surgery. Do not scrub the incisions, let soap and water wash over them and pat dry.
� Bruising around your incisions is normal.
� Using ice packs will help minimize this swelling.
� No swimming or soaking incisions for 1 week.
� Your stitches will dissolve and do not need to be removed.
Wear compression underwear or briefs, do not wear boxers or loose-fitting underwear.
Urinary retention:
If you are unable to urinate 6-8 hours after your surgery, please call [phone] to discuss further management.
Activity:
No heavy lifting more than 15 pounds for the next 3 weeks, then you may gradually lift heavier objects as tolerated by discomfort. Otherwise activity as tolerated by your comfort level.
Pain Management:
Use Tylenol, ibuprofen and ice packs to treat your pain.
� You may take 650 milligrams of Tylenol (Max 3 grams per day) every 6 hours, and 600 mg of ibuprofen also every 6 hours. (you can alternate them every 3 hours)
� You may use an ice pack to your incision as needed.
� If you still have pain not controlled by these measures, take your prescription pain medication if prescribed.
Medications:
You may resume your home medications.
Bowel Medications:
Prescription pain medication can make you constipated. If you take this medication, also take colace 100 mg twice daily (this is over the counter). If this is not sufficient, you may take Miralax (polyethylene glycol) to help move your bowels.
Diet:
After your procedure, there are no dietary restrictions.
Driving restrictions:
No driving if you are taking prescription pain medication or if you think your normal reaction time and attentiveness has been slowed by your surgery.
Things to Look out for:
Worsening Abdominal pain, redness or drainage from incision
Call Doctor for:
Please call if you notice worsening redness or drainage from incision(s) lasting longer than 5 days after your surgery, any foul-smelling drainage from the incision, pain not controlled by pain medications, persistent nausea and vomiting, or for any
fevers greater than 101.3 F. The number for questions/concerns is [phone]
Follow-up:
A follow-up appointment will be scheduled with your surgeon in 3-4 weeks. Please call prior to your appointment if you have any questions or concerns. [phone]
Referrals:
Arpit Bianchi DO [Family Provider] -
Nishant Foster MD [Active] - in two to four weeks
Additional Discharge Medication Instructions: Metamucil is on hold until outpatient follow-up (ask your surgeon Dr. Foster if you can continue taking it).
Prescriptions:
Continued
solifenacin [Vesicare] 5 mg Tablet
5 mg PO DAILY
benzonatate 200 mg Capsule
200 mg PO TIDPRN PRN (Reason: cough)
acetaminophen [Tylenol Arthritis Pain] 650 mg Tablet Extended Release
1,300 mg PO DAILY
rosuvastatin 5 mg Tablet
5 mg PO HS
No Action
promethazine-DM 6.25-15 mg/5 mL Syrup
10 ml PO TID PRN (Reason: Cough) Qty: 0 0RF
docusate sodium [Stool Softener] 100 mg Capsule
200 mg PO DAILYPRN PRN (Reason: constipation) Qty: 0 0RF
losartan 25 mg tablet
25 mg PO DAILY Qty: 30 0RF
Discharge Orders:
Discharge Patient (As Directed); Ordered 10/20/24
Ordered By: Juan Herring
Discharge Date and Time
Discharge Date/Time: 10/20/24 17:40
Print Language: ROMANSH
== END 2024-10-20 17:40 | disposition home or self-care (01) | DRG 350 ==
LOC: 4 WEST ACU 09:29
PROVIDERS: ADMITTING PHYSICIAN Hospitalist; ATTENDING PHYSICIAN Hospitalist; CONSULT PHYSICIAN Surgery; EMERGENCY PHYSICIAN Emergency Medicine; FAMILY PHYSICIAN Family Medicine
PROC: 0YU50JZ Supplement Right Inguinal Region with Synthetic Substitute, Open Approach (ICD-10-PCS; 2024-10-19)
PROC: 0YJ54ZZ Inspection of Right Inguinal Region, Percutaneous Endoscopic Approach (ICD-10-PCS; 2024-10-19)
DX: K40.30 Unilateral inguinal hernia, with obstruction, without gangrene, not specified as recurrent (principal); E43 Unspecified severe protein-calorie malnutrition; E87.1 Hypo-osmolality and hyponatremia; K56.50 Intestinal adhesions [bands], unspecified as to partial versus complete obstruction; D17.9 Benign lipomatous neoplasm, unspecified; Z90.49 Acquired absence of other specified parts of digestive tract; Z68.27 Body mass index [BMI] 27.0-27.9, adult; Z11.52 Encounter for screening for COVID-19; I10 Essential (primary) hypertension; N32.81 Overactive bladder; E78.00 Pure hypercholesterolemia, unspecified; K21.9 Gastro-esophageal reflux disease without esophagitis; M54.16 Radiculopathy, lumbar region; M19.90 Unspecified osteoarthritis, unspecified site; Z87.891 Personal history of nicotine dependence; Z79.899 Other long term (current) drug therapy; K25.9 Gastric ulcer, unspecified as acute or chronic, without hemorrhage or perforation; T50.2X5A Adverse effect of carbonic-anhydrase inhibitors, benzothiadiazides and other diuretics, initial encounter; Z53.31 Laparoscopic surgical procedure converted to open procedure
CPT/HCPCS: 88302; 88304; 88305; 71046; 74018; 74177; 80048; 80053; 81003; 81015; 82533; 83036; 83690; 83735; 83935; 84300; 84443; 84484; 85025; 85027; 86850; 86900; 86901; 87502; 87811; 93005; 93306; 96360; 97116; 97161; 97165; 99285; C1781; Q9967

== ENCOUNTER 2024-10-21 21:14 | Observation (INO) | payer MEDICARE, BC, SELFPAY ==
[2024-10-21] VITALS (10 sets, daily range): BP systolic 89–123; BP diastolic 52–79; BMI 30.4
[2024-10-21 13:50] LABS: % Basophils 0.3 % (0-2); % Eosinophils 0.4 % (0-6); % Immature Granulocytes 1.1 % (0-0.5); % Lymphocytes 7.4 % (20.5-51.1); % Monocytes 17.6 % (1.7-9.3); % Neutrophils 73.2 % (42.2-75.2); Absolute Immature Granulocytes 0.1 10^3/uL (0-0.05); Absolute Lymphocytes 0.8 10^3/uL (1.2-3.4); Absolute Neutrophils 8.3 10^3/uL (1.4-6.5); Hematocrit 38.9 % (37.0-47.0); Hemoglobin 13.1 g/dL (12.0-16.0); Mean Corp Hgb Conc. 33.7 g/dL (33.0-37.0); Mean Corpuscular Volume 86.3 fL (81.0-99.0); Mean Platelet Volume 9.1 fL (7.4-10.4); Nucleated Red Blood Cells % 0 %; Platelet Count 320 10^3/uL (130-400); Red Blood Cell Count 4.51 10^6/uL (4.20-5.40); Red Cell Dist. Width 12.9 % (11.5-14.5); White Blood Cell Count 11.3 10^3/uL (4.8-10.8)
[2024-10-21 14:08] LABS: ALT (SGPT) 19 U/L (0-35); AST (SGOT) 27 U/L (14-36); Albumin 3.8 g/dl (3.5-5.0); Alkaline Phosphatase 68 U/L (38-126); Blood Urea Nitrogen 16 mg/dl (7-17); Calcium 8.9 mg/dl (8.4-10.2); Carbon Dioxide 27 mmol/L (22-30); Chloride 97 mmol/L (98-107); Glucose 127 mg/dl (70-99); Potassium 3.4 mmol/L (3.5-5.1); Sodium 134 mmol/L (135-145); Total Bilirubin 1.3 mg/dl (0.2-1.3); Total Protein 6.2 g/dl (6.3-8.2); eGFR > 60.00
--- NOTE | 2024-10-21 16:42 | ED.GENMED ---
History of Present Illness
General
Chief Complaint: Fainting/Passed Out
Source: patient, records and family (Son, daughter)
Exam Limitations: none
Time Seen by Provider: 10/21/24 16:18
Nursing documentation reviewed up to this point in time: agreed with
History of Present Illness
History of Present Illness:
79-year-old female with a past medical history of hypertension, hyperlipidemia who presents to the emergency department for evaluation after episode of lightheadedness and syncope. Patient was notably admitted to this hospital 10/13/2024 until
10/20/2024; she was admitted with cough and nausea/vomiting ultimately was found to have a small bowel obstruction with a transition point near abdominal hernia; hernia was repaired by Dr. Foster 10/19/2024. She was discharged yesterday evening. Today
she was in the shower and began to feel lightheaded and slid down to the floor of the tub and had some fecal incontinence. Her daughter found her sitting on the floor in the tub and helped her up onto a shower bench; patient wanted to wash herself
up and daughter stepped out again and when she returned a few minutes later patient was briefly unresponsive and EMS was called to the scene. Initially patient declined coming to the hospital with EMS but family was able to convince her to come for
evaluation and ultimately drove her to the ER. She says she feels generally well here; she says she has some persistent abdominal soreness postoperatively but denies any other complaints. She did have a large bowel movement shortly after arrival
here. She denies any nausea or vomiting. She denies any chest pain, palpitations. She denies any shortness of breath. She denies any headache. She denies any other complaints.
Past History
Past History
ED Past Medical History: HTN, Hypercholesterolemia and Other (Gastric ulcer)
ED Past Surgical History: Cholecystectomy and Other (Hernia repair)
Social History
Tobacco: Non-smoker
Alcohol: None
Drug: None
Personal: Single
Living: with family
Review of Systems
Review of Systems
All Other Systems: ROS reviewed and negative except as documented in HPI and ROS
Constitutional: Denies fever
Respiratory: Denies trouble breathing
Cardiac: Reports syncope; Denies chest pain or palpitations
ABD/GI: Reports abdominal pain (Postoperative, unchanged) and diarrhea; Denies nausea or vomiting
: Denies flank pain
Musculoskeletal: Denies neck pain or back pain
Neurological: Denies headache
Phy Exam
Physical Exam
Physical Exam:
General: Awake, alert, oriented x3; no acute distress
Head: Normocephalic, atraumatic
Eyes: Conjunctiva normal, pupils equal round and reactive to light bilaterally, extraocular movements intact
Throat: Airway intact, handling secretions
Neck: Trachea midline, no cervical spine tenderness
Lungs: Clear to auscultation bilaterally, no wheezing, rales, rhonchi
Heart: Regular rate and rhythm, no murmurs, gallops, or rubs
Abd: Patient has laparoscopic incisions as well as a larger linear incision in the right pelvic/lower abdominal region; abdomen is soft, non distended, mild diffuse but appropriate tenderness particularly around incisional sites; incision sites
appear clean, no signs of acute infection
Back: No signs of trauma the back or flank and no tenderness in the thoracic or lumbar spine
Neuro: Cranial nerves intact, speech fluid with no dysarthria, motor and sensory intact upper and lower extremities
Extremities: Atraumatic, no edema in extremities, equal pulses in all extremities
Scores
Heart Failure Risk
Heart Failure Risk Score: Not Applicable
Heart Score for Chest Pain Patients
STEMI patient?: Not applicable
Withdrawal Assessment of Alcohol
Withdrawal Assessment Completed?: Not applicable
Course
Orders/Labs/Results
Orders:
Orders
10/21/24 13:16
Electrocardiogram (*1) Urgent
Reason for Study: Abdominal Pain
EKG- Treatment ONCE
10/21/24 13:31
Complete Blood Count/With Diff Urgent
Comprehensive Metabolic Panel Urgent
10/21/24 16:19
Potassium Chloride [KCl] 40 meq PO NOW STA
10/21/24 16:20
Urinalysis Reflex To Culture Urgent
0.9% Sodium Chloride 1000 ml [Nss] 1,000 ml IV BOLUS
CR Chest Portable - 1 View Urgent
Comment:
Reason For Exam: syncope, hypotension
Reason Study Needs to be Portable: Unable to Transport
10/21/24 19:30
0.9% Sodium Chloride 1000 ml [Nss] 1,000 ml IV 150 mls/hr
Benzonatate [Tessalon Perles] 200 mg PO ONCE ONE
Abnormal Lab Results
10/21/24
13:31
WBC 11.3 H 10^3/uL
(4.8-10.8)
Abs Immat Gran (auto) 0.1 H 10^3/uL
(0-0.05)
Absolute Neuts (auto) 8.3 H 10^3/uL
(1.4-6.5)
Absolute Lymphs (auto) 0.8 L 10^3/uL
(1.2-3.4)
Absolute Monos (auto) 2.0 H 10^3/uL
(0.1-0.6)
Immature Gran % 1.1 H %
(0-0.5)
Lymphocytes % 7.4 L %
(20.5-51.1)
Monocytes % 17.6 H %
(1.7-9.3)
Sodium 134 L mmol/L
(135-145)
Potassium 3.4 L mmol/L
(3.5-5.1)
Chloride 97 L mmol/L
(98-107)
Glucose 127 H mg/dl
(70-99)
Total Protein 6.2 L g/dl
(6.3-8.2)
10/21/24 13:31
10/21/24 13:31
Vital Signs
Initial and Last Documented VS:
Initial Vital Signs
Temp Pulse Resp BP Pulse Ox
36.9 C 85 20 118/53 95
10/21/24 13:12 10/21/24 13:12 10/21/24 13:12 10/21/24 13:12 10/21/24 13:12
Last Documented Vital Signs
Temp Pulse Resp BP Pulse Ox
36.6 C 75 22 107/79 93
10/21/24 16:09 10/21/24 18:45 10/21/24 18:45 10/21/24 18:00 10/21/24 18:45
MDM/Problems Addressed
Differential Diagnosis Includes:
Orthostatic hypotension, vasovagal syncope, dehydration, anemia, dysrhythmia
MDM/Problems Addressed:
79-year-old female who is postop day 2 from abdominal wall hernia repair, discharged yesterday after hospitalization for small bowel obstruction related to above; she presents to the emergency room today after lightheadedness and ultimately a
syncopal event in the shower. She feels generally well here in the emergency room denies any specific complaints aside from some loose stools. She is notably hypotensive here blood pressure 89/52. Heart rate in the 80s. Rest of vitals normal.
Physical exam as above. Will place an IV and send labs including a CBC and a CMP. Check chest x-ray and urinalysis. Check an EKG. Provide IV fluids. Monitor on telemetry. Reassess after the above.
Labs reviewed: CBC shows leukocytosis of 11.3 unclear acute clinical significance in the setting of recent surgery. CMP does show some mild hypokalemia which were repleted. Mild RONAN with a creatinine increase of 50%; suspect dehydration is main
reason for syncope at this point. Her blood pressure has improved but diastolic still soft 113/52 most recent. Will plan to admit continue IV fluids overnight, monitor vital signs. I did discuss with general surgery given recent procedure.
Discussed with hospitalist for admission.
*Radiology
Radiology exam reviewed: preliminary read by ED provider
*Pulse Oximetry
Patient hypoxic: no
*EKG
Interpreted by ED Provider?: Yes
Heart Rate: 80
Rate: normal
Rhythm: sinus
[place]: normal axis
Interval: normal interval
QRS Pattern: normal QRS
Ischemia: non-specific ST changes
*Critical Care Note
Total Time (30-74mins, 75-104mins- exclusive of procedures): Not Applicable
Data Reviewed
Review of Other/Old Records Reveals: Labs, Records and Operative Reports
Source: patient, records and family
Patient Management
Discussion with other providers: Hospitalist (Discussed with hospitalist) and Underwriting Account Representative (Updated general surgery)
Escalation/DeEscalation of care consider admission/obs:
Admission indicated
ED Attending Note
-
Portions of this chart may have been created with voice recognition software.� Occasional wrong word or��sound alike� substitutions may have occurred due to the inherent limitations of voice recognition software.
Discharge Plan
Departure
Patient Disposition: Admit
Date of Disposition: 10/21/24
Time of Disposition: 19:30
Admit to doctor: Danielle
Presentation/result/management discussed w/ accepting MD/DO: Hospitalist
Discharge Problem:
Syncope, Dehydration
Prescriptions:
No Action
cyclobenzaprine 10 mg Tablet
10 mg PO HSPRN PRN (Reason: Muscle pain)
verapamil 300 mg Capsule, [address]
300 mg PO HS
hydrochlorothiazide 25 mg Tablet
25 mg PO DAILY
solifenacin [Vesicare] 5 mg Tablet
5 mg PO DAILY
promethazine-DM 6.25-15 mg/5 mL Syrup
10 ml PO TID
benzonatate 200 mg Capsule
200 mg PO TID
acetaminophen [Tylenol Arthritis Pain] 650 mg Tablet Extended Release
1,300 mg PO DAILY
rosuvastatin 5 mg Tablet
5 mg PO HS
cholecalciferol (vitamin D3) [Vitamin D3] 50 mcg (2,000 unit) Tablet
50 mcg PO QPM
Metamucil 3.4 gram/5.4 gram Powder
2 tbsp PO DAILY
Referrals:
Arpit Bianchi DO [Family Provider] -
Interventions
Interventions:
*Risk Screen - Suicide Last Done: 10/21/24 13:12
*General Assessment Last Done: 10/21/24 13:12
*Neglect/Abuse Screening Last Done: 10/21/24 13:12
ED- Fall Risk Assessment Last Done: 10/21/24 16:50
*ED COVID-19 Vaccine History Last Done: 10/21/24 16:25
ED- Cardiac Assessment Last Done: 10/21/24 16:50
ED- Neurological Assessment Last Done: 10/21/24 16:50
Discharge Date and Time
Print Language: ITALIAN
[2024-10-21] MEDS: KCL 40 MEQ PO (16:51)
[2024-10-21] MEDS: NSS 1000 IV ×3 (17:55→22:41)
--- NOTE | 2024-10-21 19:38 | HPS.HSE ---
Family Physician
-
Family Physician: Arpit Bianchi
Chief Complaint
-
Syncope in shower x 2
History of Present Illness
79-year-old female from home by EMS complaining of being in the shower today when she became lightheaded slid to the floor of the tub had syncope with fecal incontinence. Her daughter found her sitting on the floor in the tub was able to help her
onto a shower bench she wanted to wash again her daughter returned a few minutes later she was briefly unresponsive and her daughter called EMS. She initially refused EMS transport but then decided to come to the ER. She complains of some
persistent abdominal soreness postop SBO with right inguinal hernia repair on 10/19/[address] Foster. She denies fever, chills, neck pain, chest pain, palpitations, cough, shortness of breath, nausea, vomiting, diarrhea, urinary symptoms. She
reports last bowel movement was prior to arrival here. The patient and daughter report some confusion regarding discharge instructions the patient states she did not take her HCTZ but she did take her verapamil 300 mg this a.m. According to her
prior attending she was due to stop verapamil and discuss when to resume it with her PCP Dr. Arpit Bianchi. This was not conveyed in her discharge paperwork the medication was clicked to continue along with her HCTZ. She also reports she took stool
softeners this a.m. because she I always take them' these were not listed on her MAR. The patient was also due to wear an abdominal binder. She states she did not receive that before discharge. Her daughter is at bedside we went through her
discharge instructions to stop HCTZ and verapamil 300 mg along with her Metamucil and stool softeners that she did not mention. An abdominal binder will be placed while in the ER until patient follows up with surgery as outpatient
The patient had a recent admission 10/13/2024 - 10/20/2024 secondary to small bowel obstruction with right anterolateral pelvic wall hernia status post open inguinal hernia repair on October 19, [address] Foster. She was also treated for
hyponatremia partially secondary to HCTZ this medication was stopped during admission but in review of discharge notes patient refused to stop her HCTZ and verapamil given her hyponatremia she reported she wanted to follow-up with her PCP about it.
Patient had no recall of this discussion yesterday.
She has past medical history of SBO status post open right inguinal hernia repair 10/19/2024, hyponatremia secondary to HCTZ, HTN�benign, overactive bladder,, HLD, gastric ulcer
Medical History
Past Medical History
Past Medical History: Reports Other
Additional Past Medical History:
Hypertension
Orthostatic hypotension 10/21/2024
HLD
SBO September 2024
Osteoarthritis
GERD
Hyponatremia secondary to HCTZ
Past Surgical History: Reports Other
Additional Past Surgical History:
Hernia Repair SBO status post open right inguinal hernia repair 10/19/2024
Foot Surgery
Social History
Tobacco: Former Smoker (Quit smoking 60 years ago.)
Alcohol: Occasional
Drug: None
Personal: Single
Living: Alone
Employment: Retired
Family History
Family History: Not pertinent
Allergies / Home Medications
Allergies reflects when Allergies were last updated in [employer] [employer].
Home Medications with original date entered in [employer]
Allergy/Medication List:
Allergies
Allergy/AdvReac Type Severity Reaction Status Date / Time
No Known Allergies Allergy Verified 10/21/24 13:16
Home Medications
acetaminophen 650 mg tablet,extended release (Tylenol Arthritis Pain) 1,300 mg PO DAILY arthiritis pain 10/13/24
benzonatate 200 mg capsule 200 mg PO TIDPRN PRN cough 10/13/24
promethazine-DM 6.25 mg-15 mg/5 mL oral syrup 10 ml PO TID Cough 10/13/24
rosuvastatin 5 mg tablet 5 mg PO HS High Cholesterol 10/13/24
solifenacin 5 mg tablet (Vesicare) 5 mg PO DAILY Urinary Issue 10/13/24
verapamil 300 mg capsule 24hr pellet CT,ext.release 300 mg PO HS Heart Disease/Condition 10/13/24
docusate sodium 100 mg capsule (Stool Softener) 200 mg PO DAILY 10/21/24
hydrochlorothiazide 25 mg PO DAILY 10/21/24
Review of Systems
-
History Source: Patient and Family (Daughter and son-in-law at bedside)
A 12 point ROS was completed and negative except as noted: Yes
Constitutional: Denies Fever, Fatigue or Chills
EENT: Denies Sore Throat or Runny Nose
Respiratory: Denies Cough or Trouble Breathing
Cardiac: Reports Syncope (X 2); Denies Chest Pain, Diaphoresis or Palpitations
Abdomen/GI: Reports Abdominal Pain (Generalized since abdominal surgery); Denies Nausea, Vomiting, Diarrhea, Constipated, Bloody Stools or Black Stools
: Denies Dysuria, Frequency, Flank Pain, Incontinence or Difficulty Voiding
Musculoskeletal: Denies Joint Pain or Edema
Skin: Denies Itching or Rash
Neurological: Reports Dizzy; Denies Headache or Weakness
Endocrine: Reports No Symptoms
Hematologic/Lymphatic: Reports No Symptoms
Psych: Reports Calm
Physical Exam
Vital Signs
Vital Signs
Temp Pulse Resp BP Pulse Ox
97.9 F 85 23 113/52 97
10/21/24 16:09 10/21/24 19:30 10/21/24 19:30 10/21/24 19:00 10/21/24 19:30
Physical Exam
General: Comfortable and Conversant; No Pain, Fever or Chills
HEENT: NormoCephalic, Anicteric, Moist mucous membranes, Atraumatic, PERRLA, [place] Conjunctivae and Neck Nontender
Respiratory: Clear; No Wheezes, Rales or Rhonchi
Cardiac: S1/S2 and Regular Rhythm; No Murmur, Rub or Gallop
Breast: Deferred by me
GI: Soft, Normal Bowel Sounds and Tender (Slight distention multiple laparoscopic incisions with Dermabond in place, large lower incision over upper mons pubis area intact with Dermabond in place)
Rectal: Deferred by Provider
Genito-urinary: Deferred by me
Musculoskeletal: No Clubbing, No Cyanosis and No Edema
Skin: Warm and Dry; No Rash or Jaundice
Neuro: AO x 3 (Poor memory recall), No Motor Deficits, Cranial Nerves Intact and No Sensory Deficits; No Slurred Speech, Facial Droop, Tremors or Sedated
Psych: Calm
Laboratory Results
-
10/21/24 13:31
10/21/24 13:31
Laboratory Results
Total Bilirubin 1.3 mg/dl (0.2-1.3) 10/21/24 13:31
AST 27 U/L (14-36) 10/21/24 13:31
ALT 19 U/L (0-35) 10/21/24 13:31
Alkaline Phosphatase 68 U/L (38-126) 10/21/24 13:31
Impression/Plan
-
Impression/plan:
Observation TELE
#Syncope secondary to hypotension due to RONAN/BP medication/Hx HTN�benign
-BP 89/52 > 113/52 status post 1 L NSS
-Continue IV NSS 100 cc
-Stop HCTZ and verapamil 300 mg XR daily as advised on 10/20/[id number] with PCP when to resume verapamil and likely at lower dose
-Orthostatic vitals twice daily
-Consult PT/OT/case management
EKG: NSR 80 bpm, QTc 461 MS
#Hypokalemia 2/2 HCTZ
K3.4 KCl 40 mEq given in ER
#SBO status post open right inguinal hernia repair 10/19/2024-by Dr. Johnson
-Abdominal binder to be placed today 10/21/2024 she did not receive yesterday
-Patient advised to stop stool softeners not listed on dec but taken by pt and her Metamucil
-Patient to follow-up with Dr. Johnson as outpatient as discussed with surgery
#Persistent cough since 10/08/2024 after viral URI
Entire family got sick over [place] patient still with persistent cough
-May continue Promethazine DM 10 mL 3 times daily
CXR: No active cardiopulmonary disease
#Hx hyponatremia secondary to HCTZ
NA 134 today stable
-Was resolved with stopping of HCTZ during admission
#HLD
-Continue Crestor 5 mg at bedtime
#Overactive bladder
-Continue Vesicare 5 mg daily
#Chronic ambulatory dysfunction
Uses rollator at baseline
DVT prophylaxis
SCDs
Full code
[2024-10-21] MEDS: TESSALON PERLES 200 MG PO (20:08)
[2024-10-21 20:10] LABS: Urine Albumin Trace (Neg - Trace); Urine Bilirubin 1+ (Negative); Urine Character Clear (Clear); Urine Color Yellow; Urine Glucose Negative (Negative); Urine Ketone Trace (Negative); Urine Leukocyte Trace (Negative); Urine Nitrite Negative (Negative); Urine Occult Blood Negative (Negative); Urine Specific Gravity 1.015 (<1.030); Urine Urobilinogen 1+ (Neg - 1+)
[2024-10-21 20:20] LABS: Urine Mucus Few; Urine Red Blood Cell 0-2 /HPF (0-2); Urine White Cell 0-2 /HPF (0-5)
[2024-10-21 20:21] LABS: Urine Bacteria Many (Negative)
--- NOTE | 2024-10-21 20:40 | W.PN.UPDATE ---
Update Note
Progress Note Update
Patient seen in conjunction with ASSESSMENT NURSE. I agree with the findings on history and physical. I concur with the assessment and plan as stated.
Disease is an 79-year-old with past medical history of hypertension, hyperlipidemia, lower urinary tract symptoms who presents to the emergency department for evaluation of syncopal episode at home. Patient was recently admitted and discharged 1
day ago for small bowel obstruction where she had a transition point near an abdominal hernia status post or hernia repair. She was discharged home on binder and told to stop taking verapamil and hydrochlorothiazide. However patient did not
starting this medication due to waiting for approval from PMD. She also was not using a binder.
She was having a shower today when she had a syncopal episode. She did not lose consciousness. She there was no trauma. The lab with the at her side and lowered her to the floor. She has an ongoing subacute cough since a viral illness several
weeks ago. No productive cough. No fevers or chills or shortness of breath.
Initial blood pressure was low on arrival in the emergency department.
Now after some IV resuscitation blood pressure is 113/54, she was afebrile, pulse 87, satting 97% on room air. ECG with normal sinus rhythm and no acute ST or T wave changes. Troponin negative. CBC was unremarkable. Chemistry was notable for a
sodium of 134, potassium of 3.4 and otherwise unremarkable. UA was contaminated but patient has no urinary symptoms. Chest x-ray was clear.
A&P
Patient with likely orthostatic syncope in the setting of status post surgery and hypotension in the setting of continued antihypertensive.
- admit to telemetry to eval any arrhythmia
- iv fluids
- orthostatic vs
- hold hctz and verapamil
- continue abdominal binders
- pt
Cough - subacute and post-viral. No asthma or copd. Xray clear and no signs of pneumonia
- supportive care with antitussives prn
DVT PPX SCDs
Full Code
[2024-10-21] MEDS: CRESTOR 5 MG PO (22:40)
[2024-10-22] VITALS (17 sets, daily range): BP systolic 112–150; BP diastolic 53–125; PULSE 78–84; O2SAT 94–96
[2024-10-22] MEDS: PHENERGAN SYRUP PO (00:21)
[2024-10-22] MEDS: NSS IV (04:56)
[2024-10-22] MEDS: NSS 1000 IV (04:57)
[2024-10-22 05:09] LABS: % Basophils 0.2 % (0-2); % Eosinophils 2.2 % (0-6); % Immature Granulocytes 0.9 % (0-0.5); % Lymphocytes 12.5 % (20.5-51.1); % Neutrophils 66.2 % (42.2-75.2); Absolute Eosinophils 0.2 10^3/uL (0-0.7); Absolute Immature Granulocytes 0.1 10^3/uL (0-0.05); Absolute Monocytes 1.5 10^3/uL (0.1-0.6); Absolute Neutrophils 5.4 10^3/uL (1.4-6.5); Hematocrit 31.6 % (37.0-47.0); Hemoglobin 10.5 g/dL (12.0-16.0); Mean Corp Hgb Conc. 33.2 g/dL (33.0-37.0); Mean Corpuscular Volume 87.3 fL (81.0-99.0); Mean Platelet Volume 8.9 fL (7.4-10.4); Nucleated Red Blood Cells % 0 %; Platelet Count 279 10^3/uL (130-400); Red Blood Cell Count 3.62 10^6/uL (4.20-5.40); White Blood Cell Count 8.1 10^3/uL (4.8-10.8)
[2024-10-22 05:36] LABS: Blood Urea Nitrogen 14 mg/dl (7-17); Calcium 7.8 mg/dl (8.4-10.2); Carbon Dioxide 24 mmol/L (22-30); Chloride 104 mmol/L (98-107); Estimated Creatinine Clearance 53 ml/min; Glucose 86 mg/dl (70-99); Potassium 3.6 mmol/L (3.5-5.1); Sodium 136 mmol/L (135-145); eGFR > 60.00
--- NOTE | 2024-10-22 07:16 | W.PN.HOSP.TC ---
Today's Communication/Plan
-
discharge
Assessment / Plan
Assessment / Plan
Physical Exam
General: No acute distress appears comfortable
HEENT: NormoCephalic, Anicteric, Moist mucous membranes, Atraumatic, PERRLA, [place] Conjunctivae and Neck Nontender
Respiratory: Clear; No Wheezes, Rales or Rhonchi
Cardiac: S1/S2 and Regular Rhythm; No Murmur, Rub or Gallop
GI: Soft, Normal Bowel Sounds
Musculoskeletal: No Clubbing, No Cyanosis and No Edema
Skin: Warm and Dry; No Rash or Jaundice
Neuro: AO x 3
Psych: Calm
79F SBO Hernia Repair HTN HLD overactive bladder chronic ambulatory dysfunction presents with syncope likely iatrogenic 2/2 blood pressure medication and laxative use.
#Syncope secondary to hypotension due to BP medication and laxative use
-Hypotension resolved with IVF, likely orthostatic hypotension also resolved at this time
-Stop HCTZ and verapamil 300 mg XR daily
-discussed with patient and patient's daughter Addie to convert home laxative use to as needed instead of scheduled.
-Abdominal binder provided
#Mild Hypokalemia resolved with repletion
#Hypertension
-notably during last hospitalization patient's blood pressure was relatively well controlled with losartan 25 mg daily without significant hypotension, will cont on discharge.
#SBO status post open right inguinal hernia repair 10/19/2024-by Dr. Johnson
-Patient to follow-up with Dr. Johnson as outpatient
#HLD
-Continue Crestor 5 mg at bedtime
#Overactive bladder
-Continue Vesicare 5 mg daily
#Chronic ambulatory dysfunction
Uses rollator at baseline
PT/OT eval appreciated no needs
DVT prophylaxis
SCDs
Full code
Medically stable for discharge home with outpatient follow up recommendations.
Total Time Preparing Discharge ___40____ minutes including examination of the patient, summary of the hospital stay, instructions for continuing care to all relevant caregivers; and preparation of discharge records, prescriptions, and referral
forms if necessary.
Anticipated Discharge: Today
Subjective/Interval History
-
Date of Service: October 22, 2024
Seen and examined at bedside in no acute distress sitting up comfortably in bed. overall reports feeling well. Denies new acute issues including lightheadedness dizziness. Eager to go home.
Objective Data
-
Labs:
Laboratory Results
10/22/24
04:50
WBC 8.1
Hgb 10.5 L
Hct 31.6 L
Plt Count 279
Sodium 136
Potassium 3.6
Chloride 104
Carbon Dioxide 24
BUN 14
Creatinine 0.7
Glucose 86
Calcium 7.8 L
Vital Signs:
Vital Signs
Temp Pulse Resp BP Pulse Ox
97.9 F 75 22 127/59 90
10/21/24 16:09 10/22/24 06:00 10/22/24 06:00 10/22/24 06:00 10/22/24 06:00
I&O
10/21/24 10/22/24 10/23/24
06:59 06:59 06:59
Intake Total 1000 / 1000
Balance 1000 / 1000
[2024-10-22] MEDS: PHENERGAN SYRUP 12.5 MG PO (09:13)
[2024-10-22] MEDS: TYLENOL 650 MG PO (09:13)
[2024-10-22] MEDS: VESICARE 5 MG PO (09:14)
--- NOTE | 2024-10-22 13:34 | PTOTSP ---
pt currently demonstrates ability to complete simple ADLs, functional transfers, ambulation with supervision to minimal assistance. pt's daughter is planning to stay with pt until she is recovered. no acute OT needs identified at this time, will
sign off at this time.
--- NOTE | 2024-10-22 16:08 | W.DCSUMMARY ---
Discharge Summary
Discharge Data
Date of Admission: 10/21/24
Date of Discharge: 10/22/24
-
Pending Results: No
Discharge Plan
-
Patient Disposition: Home (Routine Discharge)
Discharge Diagnosis/Procedures: Syncope suspect orthostatic hypotension, iatrogenic due to combination use Verapamil and Laxatives
Hypertension
Condition: Fair
Diet: Regular
Activity: No strenuous activity
Additional Activity: Follow up with primary care provider and/or surgeon for further recommendations advancement of activity.
Driving Restrictions: Not until seen by your Dr
Bathing Restrictions: None
Blood Work: Please repeat CBC and BMP with primary care provider in 1 week of discharge.
Activity Restrictions/Additional Instructions:
Please follow up with primary care provider in 1 week of discharge. Continue follow up with your surgeon as recommended prior.
Losartan has been prescribed for blood pressure control.
Hydrochlorothiazide was discontinued due to concerns hyponatremia since resolved.
Verapamil discontinued due to concerns iatrogenic orthostatic hypotension. Discuss with primary care provider before considering to resume.
Please keep a daily log of your pressures at home, results to be discussed with your primary care provider for further hypertension evaluation/management.
Please take medications as prescribed/recommended and follow up with primary care provider and/or other healthcare provider involved in your care for refills and/or further adjustment to your medication regimen as necessary.
Instructions: Using an abdominal binder
Referrals:
Arpit Bianchi DO [Family Provider] - in one week
Prescriptions:
New
losartan 25 mg tablet
25 mg PO DAILY Qty: 30 0RF
Continued
solifenacin [Vesicare] 5 mg Tablet
5 mg PO DAILY
benzonatate 200 mg Capsule
200 mg PO TIDPRN PRN (Reason: cough)
acetaminophen [Tylenol Arthritis Pain] 650 mg Tablet Extended Release
1,300 mg PO DAILY
rosuvastatin 5 mg Tablet
5 mg PO HS
Changed
promethazine-DM 6.25-15 mg/5 mL Syrup
10 ml PO TID PRN (Reason: Cough) Qty: 0 0RF
docusate sodium [Stool Softener] 100 mg Capsule
200 mg PO DAILYPRN PRN (Reason: constipation) Qty: 0 0RF
Discontinued
verapamil 300 mg Capsule, [address]
300 mg PO HS
hydrochlorothiazide
25 mg PO DAILY
Rx Instructions:
PT TO STOP THIS MEDICATION
Discharge Orders:
Discharge Patient (As Directed); Ordered 10/22/24
Ordered By: Swati Calderon
Discharge Date and Time
Print Language: UKRAINIAN
== END 2024-10-22 16:23 | disposition home or self-care (01) ==
LOC: ED 21:14
PROVIDERS: Clinical Nurse Specialist Family Health; Emergency Medicine; ADMITTING PHYSICIAN Internal Medicine; ATTENDING PHYSICIAN Internal Medicine; EMERGENCY PHYSICIAN Emergency Medicine; FAMILY PHYSICIAN Family Medicine
DX: R55 Syncope and collapse (principal); I95.2 Hypotension due to drugs; T50.2X5A Adverse effect of carbonic-anhydrase inhibitors, benzothiadiazides and other diuretics, initial encounter; Y92.002 Bathroom of unspecified non-institutional (private) residence as the place of occurrence of the external cause; I10 Essential (primary) hypertension; E78.00 Pure hypercholesterolemia, unspecified; R42 Dizziness and giddiness; R15.9 Full incontinence of feces; E87.6 Hypokalemia; R05.3 Chronic cough; N17.9 Acute kidney failure, unspecified; E86.0 Dehydration; R26.2 Difficulty in walking, not elsewhere classified; R94.31 Abnormal electrocardiogram [ECG] [EKG]; N32.81 Overactive bladder; M19.90 Unspecified osteoarthritis, unspecified site; K21.9 Gastro-esophageal reflux disease without esophagitis; Z87.891 Personal history of nicotine dependence; Z90.49 Acquired absence of other specified parts of digestive tract; Z87.11 Personal history of peptic ulcer disease; Z87.19 Personal history of other diseases of the digestive system
CPT/HCPCS: 71045; 80048; 80053; 81003; 81015; 85025; 87077; 87086; 87186; 93005; 96360; 96361; 97166; 99285; G0378

== ENCOUNTER 2025-07-26 04:10 | Emergency (ER) | payer MEDICARE, BC, SELFPAY ==
[2025-07-26] VITALS (11 sets, daily range): BP systolic 105–177; BP diastolic 64–134; BMI 27.4
[2025-07-26 04:46] LABS: Hematocrit 43.2 % (37.0-47.0); Hemoglobin 14.4 g/dL (12.0-16.0); Mean Corp Hgb Conc. 33.3 g/dL (33.0-37.0); Mean Corpuscular Volume 85.2 fL (81.0-99.0); Nucleated Red Blood Cells % 0 %; Platelet Count 232 10^3/uL (130-400); Red Cell Dist. Width 13.5 % (11.5-14.5)
[2025-07-26 05:06] LABS: Blood Urea Nitrogen 14 mg/dl (7-17); Calcium 9.6 mg/dl (8.4-10.2); Carbon Dioxide 25 mmol/L (22-30); Chloride 108 mmol/L (98-107); Estimated Creatinine Clearance 58 ml/min; Glucose 97 mg/dl (70-99); Sodium 139 mmol/L (135-145); eGFR > 60.00
[2025-07-26 05:13] LABS: Troponin I 0.018 ng/ml
--- NOTE | 2025-07-26 05:37 | ED.GENMED ---
History of Present Illness
<Neil Diez, DO - Last Filed: 07/26/25 05:42>
General
Chief Complaint: Blood Pressure Problem
Source: patient and ambulance crew
Exam Limitations: none
Time Seen by Provider: 07/26/25 04:38
Nursing documentation reviewed up to this point in time: agreed with
History of Present Illness
History of Present Illness:
Note:
CHIEF COMPLAINT(S)
- Pain in the left arm
- Elevated blood pressure readings
HISTORY OF PRESENT ILLNESS
The patient is an 80-year-old female who initially reported experiencing pain down her left arm around 2 AM, which she found unusual and concerning as she had never experienced it before. She did not report any accompanying chest pain or shortness
of breath. The patient noted that she went to bed at 10:30 PM and woke up at 2 AM, which is not typical for her, to use the restroom. Upon waking, she experienced the left arm pain and checked her blood pressure. She noted that her blood pressure
readings were consistently high, which increased her anxiety, possibly contributing to further elevation of her blood pressure. The patient attempted to address the issue by repeatedly checking her blood pressure, approximately 10 to 11 times within
the last 24 hours, which resulted in soreness in her arm.
The patient visited Dr. Thurman, her temperature inspector, last week. Dr. Thurman advised her to monitor her blood pressure daily and ensure the correct usage of her blood pressure device. The patient expressed uncertainty regarding how to manage the device but
mentioned her son would assist with resetting it. She also referenced advice to avoid taking her readings immediately upon waking and to delay them until later in the afternoon.
PAST MEDICAL AND SURGICAL HISTORY
- Hypertension
- Arthritis
SOCIAL HISTORY
- The patient resides at [facility], an health system living [facility].
- Former smoker, ceased smoking approximately 60 years ago after becoming ill during and never resumed.
MEDICATIONS
- Blood pressure medication (specific type not mentioned)
- Cholesterol medication
REVIEW OF SYSTEMS
- Cardiovascular: Reports elevated blood pressure readings consistently high.
- Musculoskeletal: Pain in left arm; no history of myocardial infarction reported.
- Respiratory: Denies chest pain or shortness of breath.
PHYSICAL EXAM
General: Alert, no acute distress.
Skin: Warm, dry.
Head: Normocephalic, atraumatic.
Neck: Supple, trachea midline.
Eye Ears, nose, mouth and throat: Oral mucosa moist.
Cardiovascular: Normal peripheral perfusion, No edema.
Respiratory: Respirations are non-labored.
Gastrointestinal : Abdomen nondistended
Back: Normal range of motion, Normal alignment.
Musculoskeletal: Normal range of motion, normal strength.
Neurological: Alert and oriented to person, place, time, and situation, No focal neurological deficit observed.
Psychiatric: Cooperative, appropriate mood & affect.
PROBLEM LIST
Acute:
- Elevated blood pressure readings with associated anxiety
- Left arm soreness
Chronic:
- Hypertension
- Arthritis
PLAN
- Educate patient on proper use of blood pressure monitoring device and schedule assistance from her son.
- Ensure follow-up with Dr. Thurman for ongoing cardiology and hypertension management.
- Review and assess blood pressure readings and device usage by healthcare staff at [facility].
- Reassure the patient and address her anxiety about fluctuating blood pressure readings.
DIFFERENTIAL DIAGNOSIS
The Differential Diagnosis includes, in no particular order and is not limited to:
1. Hypertensive crisis
2. Anxiety disorder
3. Musculoskeletal strain
4. Peripheral neuropathy
5. Cardiovascular disease
6. Medication side effects
7. Cervical radiculopathy
8. Myocardial ischemia (without typical presentation)
9. Stress-related symptoms
10. Psychogenic pain
Past History
<Neil Diez DO - Last Filed: 07/26/25 05:42>
Past History
ED Past Medical History: HTN, Hypercholesterolemia and Other (Gastric ulcer)
ED Past Surgical History: Cholecystectomy and Other (Hernia repair)
Social History
Tobacco: Non-smoker
Alcohol: None
Drug: None
Personal: Single
Living: with family
Phy Exam
<DO Carmen John Last Filed: 07/26/25 05:42>
General Physical Exam
General Presentation: well appearing and no apparent distress
General Skin: warm and dry
General Habitus: normal
General Mental: alert
General Hydration: appears well hydrated
ENT Exam
ENT Exam: EOMI, pharynx normal, neck supple and normocephalic
Eye Exam
Eye Exam: PERRL, cornea clear and conjunctiva normal
Cardiovascular Exam
Cardiovascular Exam: regular rate/rhythm, no edema, no murmur and normal peripheral pulses
Pulmonary Exam
Pulmonary Exam: lungs clear, no respiratory distress, no rales, no crackles, no rhonchi, no stridor, no wheezing and no cough
Gastrointestinal Exam
Gastrointestinal Exam: normal bowel sounds, non tender, soft, no organomegaly, no pulsatile mass and non distended
Neurological Exam
Neurological Exam: alert, oriented x3, no motor deficits and speech normal
Musculoskeletal Exam
Musculoskeletal Exam: full ROM and no edema
Skin Exam
Skin Exam: normal color, warm/dry, no rash and no petechia
Psychiatric Exam
Psychiatric Exam: normal mood/affect
Course
<DO Carmen John Last Filed: 07/26/25 05:42>
Orders/Labs/Results
Orders:
Orders
07/26/25 04:18
Electrocardiogram (*1) Urgent
Reason for Study: Other
Other Reason for Exam: L arm pain
EKG- Treatment ONCE
07/26/25 04:23
Basic Metabolic Panel Urgent
Complete Blood Count/With Diff Urgent
Troponin I Urgent
07/26/25 04:36
CR Chest - 2 Views Urgent
Comment:
Reason For Exam: high bp
07/26/25 05:34
EKG- Treatment ONCE
07/26/25 07:13
Troponin I Urgent
07/26/25 07:30
Electrocardiogram (*1) Urgent
Reason for Study: Chest Pain
Abnormal Lab Results
07/26/25
04:23
Absolute Monos (auto) 0.7 H 10^3/uL
(0.1-0.6)
Monocytes % 12.4 H %
(1.7-9.3)
Chloride 108 H mmol/L
(98-107)
07/26/25 04:23
07/26/25 04:23
Vital Signs
Initial and Last Documented VS:
Initial Vital Signs
Temp Pulse Resp BP Pulse Ox
98 F 78 18 177/109 97
07/26/25 04:12 07/26/25 04:12 07/26/25 04:12 07/26/25 04:12 07/26/25 04:12
Last Documented Vital Signs
Temp Pulse Resp BP Pulse Ox
98 F 70 17 155/75 92
07/26/25 04:12 07/26/25 09:00 07/26/25 09:00 07/26/25 09:00 07/26/25 09:00
<Bijan Mendez, DO - Last Filed: 07/26/25 09:35>
Orders/Labs/Results
Orders:
Orders
07/26/25 04:18
Electrocardiogram (*1) Urgent
Reason for Study: Other
Other Reason for Exam: L arm pain
EKG- Treatment ONCE
07/26/25 04:23
Basic Metabolic Panel Urgent
Complete Blood Count/With Diff Urgent
Troponin I Urgent
07/26/25 04:36
CR Chest - 2 Views Urgent
Comment:
Reason For Exam: high bp
07/26/25 05:34
EKG- Treatment ONCE
07/26/25 07:13
Troponin I Urgent
07/26/25 07:30
Electrocardiogram (*1) Urgent
Reason for Study: Chest Pain
Abnormal Lab Results
07/26/25
04:23
Absolute Monos (auto) 0.7 H 10^3/uL
(0.1-0.6)
Monocytes % 12.4 H %
(1.7-9.3)
Chloride 108 H mmol/L
(98-107)
07/26/25 04:23
07/26/25 04:23
Vital Signs
Initial and Last Documented VS:
Initial Vital Signs
Temp Pulse Resp BP Pulse Ox
98 F 78 18 177/109 97
07/26/25 04:12 07/26/25 04:12 07/26/25 04:12 07/26/25 04:12 07/26/25 04:12
Last Documented Vital Signs
Temp Pulse Resp BP Pulse Ox
98 F 70 17 155/75 92
07/26/25 04:12 07/26/25 09:00 07/26/25 09:00 07/26/25 09:00 07/26/25 09:00
<Neil Diez DO - Last Filed: 07/26/25 05:42>
*Radiology
Radiology exam reviewed: all reviewed NAD by ED Provider
*Pulse Oximetry
SaO2: 98
Oxygen Mode of Delivery: Room air
Patient hypoxic: no
*Critical Care Note
Total Time (30-74mins, 75-104mins- exclusive of procedures): Not Applicable
<Neil Diez DO - Last Filed: 07/26/25 05:42>
Update Note
Update Note:
My independent EKG interpretation is:
- Rhythm: Normal sinus rhythm
- Heart Rate: 72 bpm
- TN Interval: Normal
- QRS Duration: Normal
- QT Interval: Normal
- Rachel: Normal
- Notable Abnormalities: None
- Comparison with Previous EKG (October 21, 2024): Similar with no new abnormalities noted.
<Bijan Mendez, DO - Last Filed: 07/26/25 09:35>
Update Note
Update Note:
My independent EKG interpretation is:
- Rhythm: Normal sinus rhythm
- Heart Rate: 72 bpm
- TN Interval: Normal
- QRS Duration: Normal
- QT Interval: Normal
- Rachel: Normal
- Notable Abnormalities: None
- Comparison with Previous EKG (October 21, 2024): Similar with no new abnormalities noted.
Repeat troponin negative. Patient did not have chest pain. Is unclear if she had referred pain to her left arm. Patient stable for discharge. She is asymptomatic at this time. Doubt ACS or PE. Patient to follow-up with cardiology and primary
care. Return precautions given.
ED Attending Note
<Neil Diez, DO - Last Filed: 07/26/25 05:42>
-
Portions of this chart may have been created with voice recognition software.� Occasional wrong word or��sound alike� substitutions may have occurred due to the inherent limitations of voice recognition software.
Discharge Plan
Departure
Patient Disposition: Home (Routine Discharge)
Date of Disposition: 07/26/25
Time of Disposition: 09:22
Patient with high blood pressure during this ER visit?: Yes
Condition: Good
Discharge Problem:
Hypertension, Arm pain, left
Instructions: High Blood Pressure (DC), Chest Pain [facility] Follow Up, BLOOD PRESSURE
Prescriptions:
No Action
solifenacin [Vesicare] 5 mg Tablet
5 mg PO DAILY
benzonatate 200 mg Capsule
200 mg PO TIDPRN PRN (Reason: cough)
acetaminophen [Tylenol Arthritis Pain] 650 mg Tablet Extended Release
1,300 mg PO DAILY
rosuvastatin 5 mg Tablet
5 mg PO HS
promethazine-DM 6.25-15 mg/5 mL Syrup
10 ml PO TID PRN (Reason: Cough) Qty: 0 0RF
docusate sodium [Stool Softener] 100 mg Capsule
200 mg PO DAILYPRN PRN (Reason: constipation) Qty: 0 0RF
losartan 25 mg tablet
25 mg PO DAILY Qty: 30 0RF
Referrals:
[facility] [Provider Group]
Arpit Bianchi DO [Family Provider, Family Practice]
Courtney Thurman MD [Active, Cardiology] - Next open appointment
Activity Restrictions/Additional Instructions:
Thank You for choosing [facility].
It was a pleasure meeting you and taking part in your care. We hope for your continued healing and wellness.
Please read discharge instructions in their entirety. However, they are for general education and may not describe your exact diagnosis at discharge. Information on your ER visit and medical conditions were discussed with you along with appropriate
follow up information...
If indicated, please take your medications as instructed and indicated on discharge paperwork.
Please schedule a follow up appointment as directed. Call to schedule an appointment
Please return to the emergency department with ANY change in, persisting, or worsening of symptoms. If any of your symptoms do not improve, or persist, or become more severe within 6-12 hours, please return to the emergency department for further
care.
Please return to the emergency department if you develop a headache, neck pain/stiffness, fever greater than 100.4F, chest pain, shortness of breath, persistent nausea, vomiting, slurred speech, difficulty walking, numbness/tingling, weakness, signs
of infection or any other symptoms that are worrisome to you.
If you have any questions or concerns please do not hesitate to call the Hospital at .
Interventions
Interventions:
*Risk Screen - Suicide Last Done: 07/26/25 04:12
*General Assessment Last Done: 07/26/25 04:12
*Neglect/Abuse Screening Last Done: 07/26/25 04:12
*ED- Fall Risk Assessment Last Done: 07/26/25 04:20
*ED COVID-19 Vaccine History Last Done: 07/26/25 04:20
*ED Influenza Vaccine History Last Done: 07/26/25 04:20
ED- Cardiac Assessment Last Done: 07/26/25 04:27
ED- Neurological Assessment Last Done: 07/26/25 04:27
ED- Pulmonary Assessment Last Done: 07/26/25 04:27
Discharge Date and Time
Print Language: ROMANIAN
[2025-07-26 07:53] LABS: Troponin I < 0.012 ng/ml
== END 2025-07-26 09:37 | disposition home or self-care (01) ==
LOC: EMR 04:10
PROVIDERS: EMERGENCY PHYSICIAN Student in an Organized Health Care Education/Training Program; FAMILY PHYSICIAN Family Medicine
DX: I10 Essential (primary) hypertension (principal); M79.602 Pain in left arm; E78.00 Pure hypercholesterolemia, unspecified; M19.90 Unspecified osteoarthritis, unspecified site; Z87.891 Personal history of nicotine dependence
CPT/HCPCS: 99284; 71046; 80048; 84484; 85025; 93005